=== PATIENT | male | born 1985 | race African-American/Black ===

== ENCOUNTER 2019-12-17 10:49 | Inpatient (IN) | payer MEDICAID, OTHER ==
[~2019-12-17] VITALS: Ht 172.7 cm; Wt 105.7 kg
[2019-12-17] MEDS ORDERED: ACETAMINOPHEN 325MG TABLET PO STA (10:59)
[2019-12-17] MEDS ORDERED: SODIUM CHLORIDE 0.9% 1,000 ML IV ONE (11:09)
[2019-12-17 12:09] LABS: HEMATOCRIT. 40.6 % (42.0-52.0); HEMOGLOBIN. 13.8 g/dL (14.0-18.0); MEAN CORPUSCULAR HEMOGLOBIN 25.5 pg (28.0-32.0); MEAN CORPUSCULAR VOLUME 75.4 fL (80.0-94.0); RED BLOOD CELL COUNT 5.39 mill/uL (4.7-6.1); RED CELL DISTRIBUTION WIDTH 15.9 % (11.6-14.6)
[2019-12-17 12:21] LABS: CHLORIDE 98 mEq/L (98-107)
[2019-12-17 12:26] LABS: ETHANOL BLOOD < 10 mg/dL
[2019-12-17 12:31] LABS: BETA HYDROXYBUTYRATE 0.3 mMol/L (0.0-0.3)
[2019-12-17 12:35] LABS: D-DIMER 19.76 mg/L FEU (<0.50); INR 1.1; PROTHROMBIN TIME 11.6 sec (9.6-11.0)
[2019-12-17 12:42] LABS: CREATINE KINASE 1253 IU/L (39-308)
[2019-12-17 12:55] LABS: PLATELET ESTIMATE NORMAL
[2019-12-17 12:56] LABS: MEAN PLATELET VOLUME 8.2 fl (7.4-10.4); PLATELET 210 x1000/uL (130-400)
[2019-12-17] MEDS ORDERED: SODIUM CHLORIDE 0.9% 1000ML BAG (SEPSIS BOLUS) IV ONE (14:00)
[2019-12-17] MEDS ORDERED: PIPERACILLIN/TAZOBACTAM 3.375 G/VIAL IV SCH (14:00)
[2019-12-17] MEDS ORDERED: PIPERACILLIN/TAZ 3.375G PREMIX 50 ML IV NR (14:15)
[2019-12-17] MEDS: SODIUM CHLORIDE 0.9% 1,000 ML IV SCH (14:16)
[2019-12-17 14:50] LABS: CLARITY URINE CLOUDY (CLEAR); COLOR URINE DARK YELLOW (YELLOW); KETONES URINE NEGATIVE (NEGATIVE); LEUKOCYTE ESTERASE URINE TRACE (NEGATIVE); NITRITE URINE NEGATIVE (NEGATIVE); OCCULT BLOOD URINE 2+ (NEGATIVE); PROTEIN URINE 2+ (NEGATIVE)
[2019-12-17] MEDS ORDERED: VANCOMYCIN 1500MG in DEXTROSE 5% WATER 250ML IV NR (15:00)
[2019-12-17 15:08] LABS: *AMPHETAMINES SCREEN URINE NEGATIVE (NEGATIVE); *BARBITURATES SCREEN URINE NEGATIVE (NEGATIVE); *BENZODIAZEPINES SCREEN URINE NEGATIVE (NEGATIVE); *COCAINE SCREEN URINE NEGATIVE (NEGATIVE)
[2019-12-17 15:09] LABS: CANNABINOID URINE SCREEN NEGATIVE (NEGATIVE); METHADONE URINE SCREEN NEGATIVE (NEGATIVE); OPIATES URINE SCREEN NEGATIVE (NEGATIVE); PHENCYCLIDINE URINE SCREEN NEGATIVE (NEGATIVE)
[2019-12-17 15:38] LABS: BG BASE EXCESS 0.1 mmol/L (-2.0-2.0); BG CARBOXYHEMOGLOBIN 0.3 % (0.5-1.5); BG DEOXYHEMOGLOBIN 0.8 % (0.0-5.0); BG FRACTION INSPIRED OXYGEN 100; BG HCO3 ACT 23.5 mmol/L (22.0-26.0); BG METHEMOGLOBIN 0.5 % (0.0-1.5); BG OXYGEN SATURATION 99.2 % (92.0-98.5); BG OXYHEMOGLOBIN 98.4 % (94.0-97.0); BG PCO2 34.3 mmHg (35.0-45.0); BG PH 7.453 (7.350-7.450); BG PO2 198.3 mmHg (75.0-100.0); BG SAMPLE SITE RIGHT RADIAL; BG TOTAL HEMOGLOBIN 13.6 g/dL (12.0-18.0); BG VENT MODE MASK - NRB
[2019-12-17] MEDS ORDERED: ENOXAPARIN 40MG/0.4ML SYR SUBCUT SCH (16:00)
[2019-12-17] MEDS ORDERED: DOCUSATE SODIUM 100MG CAPSULE PO PRN (19:30)
[2019-12-17] MEDS ORDERED: LORAZEPAM 0.5MG TABLET PO PRN (19:30)
[2019-12-17] MEDS ORDERED: HYDROCODONE/ACETAMINOPHEN 5/325MG TABLET PO PRN (19:30)
[2019-12-17] MEDS ORDERED: IPRATROPIUM/ALBUTEROL 0.5-3(2.5)MG/3ML NEB HHN PRN (19:30)
[2019-12-17 20:00] VITALS: BP 161/83
[2019-12-17 20:35] VITALS: BP 161/83
[2019-12-17 21:00] VITALS: BP 146/82
[2019-12-17] MEDS ORDERED: PIPERACILLIN/TAZ 3.375G PREMIX 50 ML IV SCH (22:00)
[2019-12-17] MEDS ORDERED: IOHEXOL-350 100 ML BOTTLE ONE (22:12)
[2019-12-17] MEDS: PIPERACILLIN/TAZOBACTAM 3.375 G in DEXT 5% WATER 100 ML IV SCH (22:35)
[2019-12-17] MEDS ORDERED: METF-414 PO (22:42)
[2019-12-18] VITALS (63 sets, daily range): BP systolic 95–229; BP diastolic 35–132
[2019-12-18] MEDS: SODIUM CHLORIDE 0.9% 1,000 ML IV SCH ×4 (00:26→20:13)
[2019-12-18] MEDS: ACETAMINOPHEN 325MG TABLET PO PRN ×3 (00:51→20:52)
[2019-12-18] MEDS: PIPERACILLIN/TAZOBACTAM 3.375 G in DEXT 5% WATER 100 ML IV SCH ×4 (01:13→20:12)
[2019-12-18] MEDS: ALBUTEROL 6.7GM HFA INHALER ORI SCH ×2 (01:40→08:25)
[2019-12-18] MEDS ORDERED: VANCOMYCIN 1 G PREMIX 200 ML IV SCH ×2 (06:00)
[2019-12-18 07:24] LABS: HEMOGLOBIN. 12.8 g/dL (14.0-18.0); MEAN CORPUSCULAR HEMOGLOBIN 25.6 pg (28.0-32.0); MEAN PLATELET VOLUME 8.1 fl (7.4-10.4); PLATELET 175 x1000/uL (130-400); RED BLOOD CELL COUNT 5.01 mill/uL (4.7-6.1); RED CELL DISTRIBUTION WIDTH 16.1 % (11.6-14.6)
[2019-12-18 07:31] LABS: CHLORIDE 103 mEq/L (98-107)
[2019-12-18 07:39] LABS: LDL CHOLESTEROL 39 mg/dL (5-100); TOTAL IRON BINDING CAPACITY 262 ug/dL (250-450)
[2019-12-18 07:42] LABS: HDL CHOLESTEROL 10 mg/dL (40-59)
[2019-12-18] MEDS ORDERED: PHENYLEPHRINE 20 MG in DEXT 5% WATER 248 ML IV PRN (12:30)
[2019-12-18 13:08] LABS: BG BASE EXCESS -4.3 mmol/L (-2.0-2.0); BG CARBOXYHEMOGLOBIN 0.2 % (0.5-1.5); BG DEOXYHEMOGLOBIN 1.8 % (0.0-5.0); BG HCO3 ACT 22.5 mmol/L (22.0-26.0); BG METHEMOGLOBIN 0.4 % (0.0-1.5); BG OXYGEN SATURATION 98.2 % (92.0-98.5); BG OXYHEMOGLOBIN 97.6 % (94.0-97.0); BG PCO2 47.8 mmHg (35.0-45.0); BG PO2 127.6 mmHg (75.0-100.0); BG SAMPLE SITE RIGHT BRACHIAL; BG TIDAL VOLUME(mL) 550 mL; BG TOTAL HEMOGLOBIN 13.7 g/dL (12.0-18.0); BG VENT MODE VENT - A/C; BG VENT RATE 18 set
[2019-12-18] MEDS: FENTANYL CITRATE/PF 1,000 MCG in SODIUM CHLORIDE 0.9% 80 ML IV PRN ×2 (13:28→21:14)
[2019-12-18] MEDS: MIDAZOLAM HCL 100 MG in DEXT 5% WATER 80 ML IV PRN ×2 (13:30→21:14)
[2019-12-18 14:09] LABS: PLATELET ESTIMATE NORMAL
[2019-12-18] MEDS: ENOXAPARIN 120MG/0.8ML SYR SUBCUT SCH ×2 (16:01→20:13)
[2019-12-18] MEDS: IPRATROPIUM/ALBUTEROL 0.5-3(2.5)MG/3ML NEB HHN SCH ×3 (16:55→22:05)
[2019-12-18] MEDS ORDERED: VANCOMYCIN 1250MG in DEXTROSE 5% WATER 250ML IV SCH (20:00)
[2019-12-19] VITALS (95 sets, daily range): BP systolic 97–153; BP diastolic 47–90
[2019-12-19] MEDS: PIPERACILLIN/TAZOBACTAM 3.375 G in DEXT 5% WATER 100 ML IV SCH ×4 (02:16→21:04)
[2019-12-19] MEDS: IPRATROPIUM/ALBUTEROL 0.5-3(2.5)MG/3ML NEB HHN SCH ×4 (04:10→20:21)
[2019-12-19 05:46] LABS: HEMATOCRIT. 34.3 % (42.0-52.0); HEMOGLOBIN. 11.5 g/dL (14.0-18.0); MEAN CORPUSCULAR HEMOGLOBIN 25.8 pg (28.0-32.0); MEAN CORPUSCULAR VOLUME 77.2 fL (80.0-94.0); MEAN PLATELET VOLUME 8.8 fl (7.4-10.4); PLATELET 182 x1000/uL (130-400); RED BLOOD CELL COUNT 4.45 mill/uL (4.7-6.1); RED CELL DISTRIBUTION WIDTH 16.3 % (11.6-14.6)
[2019-12-19] MEDS: SODIUM CHLORIDE 0.9% 1,000 ML IV SCH ×2 (06:17→17:00)
[2019-12-19 06:24] LABS: HEPATITIS B SURFACE ANTIGEN NEGATIVE
[2019-12-19] MEDS: ACETAMINOPHEN 325MG TABLET PO PRN ×2 (06:46→13:00)
[2019-12-19 06:54] LABS: HEPATITIS A AB IGM NEGATIVE (NEGATIVE)
[2019-12-19 07:08] LABS: PLATELET ESTIMATE NORMAL
[2019-12-19] MEDS: ENOXAPARIN 120MG/0.8ML SYR SUBCUT SCH ×2 (09:37→21:04)
[2019-12-19 09:58] LABS: BG CARBOXYHEMOGLOBIN 0.3 % (0.5-1.5); BG DEOXYHEMOGLOBIN 0.9 % (0.0-5.0); BG FRACTION INSPIRED OXYGEN 80; BG HCO3 ACT 24.5 mmol/L (22.0-26.0); BG METHEMOGLOBIN 0.7 % (0.0-1.5); BG OXYGEN SATURATION 99.1 % (92.0-98.5); BG OXYHEMOGLOBIN 98.1 % (94.0-97.0); BG PCO2 44.3 mmHg (35.0-45.0); BG PH 7.361 (7.350-7.450); BG PO2 277.4 mmHg (75.0-100.0); BG SAMPLE SITE RIGHT RADIAL; BG TIDAL VOLUME(mL) 500 mL; BG TOTAL HEMOGLOBIN 10.8 g/dL (12.0-18.0); BG VENT MODE VENT- PRVC; BG VENT RATE 20 set
[2019-12-19] MEDS ORDERED: DEXTROSE 50% WATER 50ML SYRINGE IV PRN (14:45)
[2019-12-19 15:03] LABS: CLARITY URINE TURBID (CLEAR); COLOR URINE DARK YELLOW (YELLOW); KETONES URINE NEGATIVE (NEGATIVE); LEUKOCYTE ESTERASE URINE 1+ (NEGATIVE); NITRITE URINE NEGATIVE (NEGATIVE); OCCULT BLOOD URINE 2+ (NEGATIVE); PROTEIN URINE 2+ (NEGATIVE); SPECIFIC GRAVITY URINE 1.019 (1.005-1.030)
[2019-12-19] MEDS: BLOOD SUGAR DIAGNOSTIC STRIP TEST SCH (18:00)
[2019-12-19] MEDS: INSULIN LISPRO 100 UNITS/ML SUBCUT SCH (18:00)
[2019-12-19] MEDS: FENTANYL CITRATE/PF 1,000 MCG in SODIUM CHLORIDE 0.9% 80 ML IV PRN (21:22)
[2019-12-19] MEDS: MIDAZOLAM HCL 100 MG in DEXT 5% WATER 80 ML IV PRN (22:26)
[2019-12-20] VITALS (89 sets, daily range): BP systolic 104–140; BP diastolic 49–84
[2019-12-20] MEDS: SODIUM CHLORIDE 0.9% 1,000 ML IV SCH (01:14)
[2019-12-20] MEDS: BLOOD SUGAR DIAGNOSTIC STRIP TEST SCH ×4 (01:59→17:40)
[2019-12-20] MEDS: INSULIN LISPRO 100 UNITS/ML SUBCUT SCH ×4 (02:00→17:40)
[2019-12-20] MEDS: PIPERACILLIN/TAZOBACTAM 3.375 G in DEXT 5% WATER 100 ML IV SCH ×4 (02:18→20:41)
[2019-12-20 05:29] LABS: HEMATOCRIT. 30.9 % (42.0-52.0); HEMOGLOBIN. 10.3 g/dL (14.0-18.0); MEAN CORPUSCULAR HEMOGLOBIN 25.4 pg (28.0-32.0); MEAN CORPUSCULAR VOLUME 76.5 fL (80.0-94.0); MEAN PLATELET VOLUME 8.7 fl (7.4-10.4); PLATELET 206 x1000/uL (130-400); RED BLOOD CELL COUNT 4.04 mill/uL (4.7-6.1); RED CELL DISTRIBUTION WIDTH 15.8 % (11.6-14.6)
[2019-12-20 05:46] LABS: CHLORIDE 113 mEq/L (98-107)
[2019-12-20 05:56] LABS: PHOSPHORUS 2.5 mg/dL (2.5-4.9)
[2019-12-20] MEDS: FENTANYL CITRATE/PF 1,000 MCG in SODIUM CHLORIDE 0.9% 80 ML IV PRN ×2 (06:11→20:28)
[2019-12-20 07:32] LABS: PLATELET ESTIMATE NORMAL
[2019-12-20] MEDS: ENOXAPARIN 120MG/0.8ML SYR SUBCUT SCH ×2 (08:38→20:41)
[2019-12-20] MEDS: ACETAMINOPHEN 325MG TABLET PO PRN ×3 (08:39→21:53)
[2019-12-20] MEDS: SODIUM HYPOCHLORITE 0.125% 473ML SOLUTION TOP SCH ×2 (08:39)
[2019-12-20] MEDS: IPRATROPIUM/ALBUTEROL 0.5-3(2.5)MG/3ML NEB HHN SCH ×3 (09:04→20:15)
[2019-12-20] MEDS: SODIUM CHLORIDE 0.45% 1,000 ML IV SCH ×3 (09:34→20:28)
[2019-12-20] MEDS: MIDAZOLAM HCL 100 MG in DEXT 5% WATER 80 ML IV PRN ×2 (09:37→23:02)
[2019-12-20] MEDS: DAPTOMYCIN 500 MG in SODIUM CHLORIDE 0.9% 50 ML IV SCH (15:31)
[2019-12-21] VITALS (96 sets, daily range): BP systolic 107–147; BP diastolic 48–75
[2019-12-21] MEDS: IPRATROPIUM/ALBUTEROL 0.5-3(2.5)MG/3ML NEB HHN SCH ×4 (01:08→20:25)
[2019-12-21] MEDS: PIPERACILLIN/TAZOBACTAM 3.375 G in DEXT 5% WATER 100 ML IV SCH ×4 (02:28→20:41)
[2019-12-21 04:07] LABS: HIV 1 ABS Positive (Negative); HIV 2 ABS Negative (Negative); HIV SCREEN 4G Reactive (Non Reactive); INTERPRETATION HIV-1 Positive (.)
[2019-12-21 05:06] LABS: HEMATOCRIT. 30.3 % (42.0-52.0); HEMOGLOBIN. 10.1 g/dL (14.0-18.0); MEAN CORPUSCULAR HEMOGLOBIN 25.5 pg (28.0-32.0); MEAN CORPUSCULAR VOLUME 76.5 fL (80.0-94.0); MEAN PLATELET VOLUME 8.8 fl (7.4-10.4); PLATELET 260 x1000/uL (130-400); RED BLOOD CELL COUNT 3.97 mill/uL (4.7-6.1); RED CELL DISTRIBUTION WIDTH 16.5 % (11.6-14.6)
[2019-12-21 05:14] LABS: CHLORIDE 114 mEq/L (98-107)
[2019-12-21 05:19] LABS: PHOSPHORUS 2.6 mg/dL (2.5-4.9)
[2019-12-21] MEDS: INSULIN LISPRO 100 UNITS/ML SUBCUT SCH ×5 (06:00→23:44)
[2019-12-21] MEDS: ACETAMINOPHEN 325MG TABLET PO PRN ×3 (06:14→19:58)
[2019-12-21] MEDS: SODIUM CHLORIDE 0.45% 1,000 ML IV SCH (06:37)
[2019-12-21 06:38] LABS: PLATELET ESTIMATE NORMAL
[2019-12-21] MEDS: BLOOD SUGAR DIAGNOSTIC STRIP TEST SCH ×5 (06:51→23:44)
[2019-12-21] MEDS: ENOXAPARIN 120MG/0.8ML SYR SUBCUT SCH ×2 (08:20→20:40)
[2019-12-21] MEDS: SODIUM HYPOCHLORITE 0.125% 473ML SOLUTION TOP SCH (08:21)
[2019-12-21] MEDS: DEXTROSE 5% WATER 1,000 ML IV SCH ×2 (08:45→21:30)
[2019-12-21] MEDS ORDERED: LIDOCAINE HCL 1% 20ML VIAL (Pyxis) INJ ONE (09:16)
[2019-12-21 10:06] LABS: *CREATININE RANDOM URINE 104.7 mg/dL (Not Estab.); MICROALBUMIN RANDOM URINE 23.5 ug/mL (Not Estab.)
[2019-12-21] MEDS: PANTOPRAZOLE SODIUM 40 MG/VIAL IV SCH (11:21)
[2019-12-21] MEDS: DAPTOMYCIN 500 MG in SODIUM CHLORIDE 0.9% 50 ML IV SCH (16:18)
[2019-12-22] VITALS (93 sets, daily range): BP systolic 115–169; BP diastolic 58–93
[2019-12-22] MEDS: IPRATROPIUM/ALBUTEROL 0.5-3(2.5)MG/3ML NEB HHN SCH ×4 (00:52→20:19)
[2019-12-22] MEDS: PIPERACILLIN/TAZOBACTAM 3.375 G in DEXT 5% WATER 100 ML IV SCH ×4 (01:34→20:18)
[2019-12-22] MEDS: ACETAMINOPHEN 325MG TABLET PO PRN ×2 (02:45→12:11)
[2019-12-22] MEDS: INSULIN LISPRO 100 UNITS/ML SUBCUT SCH ×4 (06:00→23:57)
[2019-12-22] MEDS: BLOOD SUGAR DIAGNOSTIC STRIP TEST SCH ×4 (06:11→23:44)
[2019-12-22 06:12] LABS: CHLORIDE 114 mEq/L (98-107); HEMATOCRIT. 30.6 % (42.0-52.0); MEAN PLATELET VOLUME 8.9 fl (7.4-10.4); PLATELET 328 x1000/uL (130-400); RED BLOOD CELL COUNT 4.03 mill/uL (4.7-6.1); RED CELL DISTRIBUTION WIDTH 16.1 % (11.6-14.6)
[2019-12-22] MEDS: ENOXAPARIN 120MG/0.8ML SYR SUBCUT SCH ×2 (08:36→20:19)
[2019-12-22] MEDS: PANTOPRAZOLE SODIUM 40 MG/VIAL IV SCH (08:37)
[2019-12-22 09:35] LABS: PLATELET ESTIMATE NORMAL
[2019-12-22] MEDS: FENTANYL CITRATE/PF 1,000 MCG in SODIUM CHLORIDE 0.9% 80 ML IV PRN (11:09)
[2019-12-22] MEDS: SODIUM HYPOCHLORITE 0.125% 473ML SOLUTION TOP SCH (11:10)
[2019-12-22 12:08] LABS: BG BASE EXCESS -0.9 mmol/L (-2.0-2.0); BG CARBOXYHEMOGLOBIN 0.3 % (0.5-1.5); BG DEOXYHEMOGLOBIN 3.8 % (0.0-5.0); BG HCO3 ACT 23.6 mmol/L (22.0-26.0); BG METHEMOGLOBIN 0.7 % (0.0-1.5); BG OXYGEN SATURATION 96.2 % (92.0-98.5); BG OXYHEMOGLOBIN 95.2 % (94.0-97.0); BG PCO2 38.6 mmHg (35.0-45.0); BG PH 7.405 (7.350-7.450); BG PO2 89.2 mmHg (75.0-100.0); BG SAMPLE SITE RIGHT RADIAL; BG TIDAL VOLUME(mL) 500 mL; BG TOTAL HEMOGLOBIN 10.6 g/dL (12.0-18.0); BG VENT MODE VENT - A/C; BG VENT RATE 16 set
[2019-12-22] MEDS: DEXTROSE 5% WATER 1,000 ML IV SCH (14:51)
[2019-12-22] MEDS: DAPTOMYCIN 500 MG in SODIUM CHLORIDE 0.9% 50 ML IV SCH (17:11)
[2019-12-22] MEDS: ACETAMINOPHEN 650MG/20.3ML UDC PO PRN (18:17)
[2019-12-22] MEDS: MIDAZOLAM HCL 100 MG in DEXT 5% WATER 80 ML IV PRN (21:08)
[2019-12-23] VITALS (65 sets, daily range): BP systolic 113–193; BP diastolic 56–129
[2019-12-23] MEDS: IPRATROPIUM/ALBUTEROL 0.5-3(2.5)MG/3ML NEB HHN SCH ×4 (02:15→20:54)
[2019-12-23] MEDS: FENTANYL CITRATE/PF 1,000 MCG in SODIUM CHLORIDE 0.9% 80 ML IV PRN ×2 (05:05→16:25)
[2019-12-23] MEDS: DEXTROSE 5% WATER 1,000 ML IV SCH ×2 (05:09→16:22)
[2019-12-23] MEDS: BLOOD SUGAR DIAGNOSTIC STRIP TEST SCH ×4 (05:09→23:42)
[2019-12-23] MEDS: INSULIN LISPRO 100 UNITS/ML SUBCUT SCH ×4 (05:35→23:42)
[2019-12-23 05:47] LABS: HEMOGLOBIN. 9.7 g/dL (14.0-18.0); MEAN CORPUSCULAR HEMOGLOBIN 25.5 pg (28.0-32.0); MEAN PLATELET VOLUME 8.7 fl (7.4-10.4); PLATELET 359 x1000/uL (130-400); RED BLOOD CELL COUNT 3.81 mill/uL (4.7-6.1); RED CELL DISTRIBUTION WIDTH 16.2 % (11.6-14.6)
[2019-12-23] MEDS: ACETAMINOPHEN 650MG/20.3ML UDC PO PRN (06:16)
[2019-12-23 08:16] LABS: BG BASE EXCESS -2.8 mmol/L (-2.0-2.0); BG CARBOXYHEMOGLOBIN 0.3 % (0.5-1.5); BG DEOXYHEMOGLOBIN 1.4 % (0.0-5.0); BG FRACTION INSPIRED OXYGEN 40; BG HCO3 ACT 21.9 mmol/L (22.0-26.0); BG OXYGEN SATURATION 98.6 % (92.0-98.5); BG OXYHEMOGLOBIN 97.3 % (94.0-97.0); BG PCO2 37.4 mmHg (35.0-45.0); BG PH 7.385 (7.350-7.450); BG PO2 143.1 mmHg (75.0-100.0); BG SAMPLE SITE RIGHT RADIAL; BG TIDAL VOLUME(mL) 500 mL; BG TOTAL HEMOGLOBIN 8.8 g/dL (12.0-18.0); BG VENT MODE VENT - A/C; BG VENT RATE 16 set
[2019-12-23 09:07] LABS: ABSOLUTE EOSINOPHILS 0.2 x10E3/uL (0.0-0.4); ABSOLUTE LYMPHOCYTES 2.6 x10E3/uL (0.7-3.1); ABSOLUTE MONOCYTES 0.9 x10E3/uL (0.1-0.9); ABSOLUTE NEUTROPHILS 16.7 x10E3/uL (1.4-7.0); BASOPHILS 0 % (Not Estab.); HEMATOCRIT 31.8 % (37.5-51.0); HEMATOLOGY COMMENT Note: (.); HEMOGLOBIN 9.7 g/dL (13.0-17.7); LYMPHOCYTES 12 % (Not Estab.); MEAN CORPUSCULAR HEMOGLOBIN 25.1 pg (26.6-33.0); MEAN CORPUSCULAR HGB CONC. 30.5 g/dL (31.5-35.7); MEAN CORPUSCULAR VOLUME 82 fL (79-97); MONOCYTES 4 % (Not Estab.); NEUTROPHILS 73 % (Not Estab.); PLATELETS 349 x10E3/uL (150-450); RBC 3.86 x10E6/uL (4.14-5.80); RED CELL DISTRIBUTION WIDTH 16.5 % (11.6-15.4); WBC 21.4 x10E3/uL (3.4-10.8)
[2019-12-23] MEDS: SODIUM HYPOCHLORITE 0.125% 473ML SOLUTION TOP SCH (09:30)
[2019-12-23] MEDS: PANTOPRAZOLE SODIUM 40 MG/VIAL IV SCH (09:33)
[2019-12-23] MEDS: ACETAMINOPHEN 325MG TABLET PO PRN ×4 (09:33→23:46)
[2019-12-23] MEDS: ENOXAPARIN 120MG/0.8ML SYR SUBCUT SCH ×2 (09:33→20:55)
[2019-12-23 10:27] LABS: PLATELET ESTIMATE NORMAL
[2019-12-23] MEDS ORDERED: MIDAZOLAM HCL 50 MG in DEXTROSE 5% WATER 40 ML IV PRN (13:15)
[2019-12-23] MEDS: DAPTOMYCIN 500 MG in SODIUM CHLORIDE 0.9% 50 ML IV SCH (16:21)
[2019-12-23] MEDS: DOXYCYCLINE HYCLATE 100MG CAPSULE PO SCH (18:44)
[2019-12-23] MEDS: POLYETHYLENE GLYCOL 3350 (17GM) 1 DOSE PACK PO PRN (20:55)
[2019-12-24] VITALS (45 sets, daily range): BP systolic 83–158; BP diastolic 48–91
[2019-12-24] MEDS: IPRATROPIUM/ALBUTEROL 0.5-3(2.5)MG/3ML NEB HHN SCH ×4 (01:27→20:28)
[2019-12-24] MEDS: DEXTROSE 5% WATER 1,000 ML IV SCH ×2 (04:13→16:43)
[2019-12-24] MEDS: FENTANYL CITRATE/PF 1,000 MCG in SODIUM CHLORIDE 0.9% 80 ML IV PRN ×3 (04:15→22:49)
[2019-12-24 05:35] LABS: HEMOGLOBIN. 9.6 g/dL (14.0-18.0); MEAN CORPUSCULAR HEMOGLOBIN 25.3 pg (28.0-32.0); MEAN CORPUSCULAR VOLUME 76.6 fL (80.0-94.0); MEAN PLATELET VOLUME 8.8 fl (7.4-10.4); PLATELET 390 x1000/uL (130-400); RED BLOOD CELL COUNT 3.78 mill/uL (4.7-6.1); RED CELL DISTRIBUTION WIDTH 16.1 % (11.6-14.6)
[2019-12-24 05:50] LABS: CHLORIDE 115 mEq/L (98-107)
[2019-12-24 05:58] LABS: PHOSPHORUS 3.4 mg/dL (2.5-4.9)
[2019-12-24] MEDS: BLOOD SUGAR DIAGNOSTIC STRIP TEST SCH ×3 (06:00→17:51)
[2019-12-24] MEDS: INSULIN LISPRO 100 UNITS/ML SUBCUT SCH ×3 (06:00→17:52)
[2019-12-24] MEDS: ACETAMINOPHEN 325MG TABLET PO PRN (06:09)
[2019-12-24 08:57] LABS: BG BASE EXCESS -1.4 mmol/L (-2.0-2.0); BG CARBOXYHEMOGLOBIN 0.3 % (0.5-1.5); BG DEOXYHEMOGLOBIN 3.4 % (0.0-5.0); BG FRACTION INSPIRED OXYGEN 35; BG HCO3 ACT 22.5 mmol/L (22.0-26.0); BG METHEMOGLOBIN 0.8 % (0.0-1.5); BG OXYGEN SATURATION 96.6 % (92.0-98.5); BG OXYHEMOGLOBIN 95.5 % (94.0-97.0); BG PCO2 34.4 mmHg (35.0-45.0); BG PH 7.433 (7.350-7.450); BG PO2 99.3 mmHg (75.0-100.0); BG SAMPLE SITE RIGHT RADIAL; BG TIDAL VOLUME(mL) 500 mL; BG TOTAL HEMOGLOBIN 9.8 g/dL (12.0-18.0); BG VENT MODE VENT - A/C; BG VENT RATE 16 set
[2019-12-24 09:06] LABS: % CD 3 POS. LYMPHOCYTES 86.4 % (57.5-86.2); % CD 4 POS. LYMPHOCYTES 19.7 % (30.8-58.5); % CD 8 POS. LYMPH 64.7 % (12.0-35.5); ABSOLUTE CD 3 2246 /uL (622-2402); ABSOLUTE CD 4 HELPER 512 /uL (359-1519); ABSOLUTE CD 8 SUPPRESSOR 1682 /uL (109-897)
[2019-12-24 09:21] LABS: NUCLEATED RED BLOOD CELLS 1 /100 WBC
[2019-12-24 09:22] LABS: PLATELET ESTIMATE NORMAL
[2019-12-24] MEDS: DOXYCYCLINE HYCLATE 100MG CAPSULE PO SCH ×2 (09:36→22:42)
[2019-12-24] MEDS: PANTOPRAZOLE SODIUM 40 MG/VIAL IV SCH (09:36)
[2019-12-24] MEDS: ENOXAPARIN 120MG/0.8ML SYR SUBCUT SCH ×2 (09:37→22:42)
[2019-12-24] MEDS: POLYETHYLENE GLYCOL 3350 (17GM) 1 DOSE PACK PO PRN (09:37)
[2019-12-24] MEDS: SODIUM HYPOCHLORITE 0.125% 473ML SOLUTION TOP SCH (09:38)
[2019-12-24] MEDS: MIDAZOLAM HCL 100 MG in DEXT 5% WATER 80 ML IV PRN (11:32)
[2019-12-24] MEDS: ACETAMINOPHEN 650MG/20.3ML UDC PO PRN (13:38)
[2019-12-24] MEDS: DAPTOMYCIN 500 MG in SODIUM CHLORIDE 0.9% 50 ML IV SCH (16:28)
[2019-12-24] MEDS: CEFAZOLIN 2,000 MG in DEXT 5% WATER 100 ML IV SCH (22:44)
[2019-12-25] VITALS (46 sets, daily range): BP systolic 100–172; BP diastolic 41–88
[2019-12-25] MEDS: MIDAZOLAM HCL 100 MG in DEXT 5% WATER 80 ML IV PRN ×2 (02:04→13:46)
[2019-12-25] MEDS: IPRATROPIUM/ALBUTEROL 0.5-3(2.5)MG/3ML NEB HHN SCH ×4 (02:05→21:00)
[2019-12-25] MEDS: ACETAMINOPHEN 650MG/20.3ML UDC PO PRN ×2 (02:05→22:41)
[2019-12-25 05:52] LABS: BASOPHILS % 0.5 % (0.0-2.0); EOSINOPHILS % 1.2 % (0.0-5.0); HEMATOCRIT. 28.6 % (42.0-52.0); HEMOGLOBIN. 9.3 g/dL (14.0-18.0); LYMPHOCYTES % 9.2 % (20.0-50.0); MEAN CORPUSCULAR HEMOGLOBIN 25.7 pg (28.0-32.0); MEAN CORPUSCULAR VOLUME 78.6 fL (80.0-94.0); MEAN PLATELET VOLUME 9.3 fl (7.4-10.4); MONOCYTES % 4.3 % (2.0-8.0); NEUTROPHILS % 84.8 % (40.0-76.0); PLATELET 394 x1000/uL (130-400); RED BLOOD CELL COUNT 3.64 mill/uL (4.7-6.1); RED CELL DISTRIBUTION WIDTH 15.9 % (11.6-14.6)
[2019-12-25] MEDS: INSULIN LISPRO 100 UNITS/ML SUBCUT SCH ×4 (06:00→17:34)
[2019-12-25 06:02] LABS: CHLORIDE 114 mEq/L (98-107)
[2019-12-25] MEDS: CEFAZOLIN 2,000 MG in DEXT 5% WATER 100 ML IV SCH ×3 (06:07→22:41)
[2019-12-25] MEDS: BLOOD SUGAR DIAGNOSTIC STRIP TEST SCH ×4 (06:07→17:35)
[2019-12-25] MEDS: DEXTROSE 5% WATER 1,000 ML IV SCH ×2 (06:08→20:32)
[2019-12-25 06:09] LABS: PHOSPHORUS 3.3 mg/dL (2.5-4.9)
[2019-12-25] MEDS: FENTANYL CITRATE/PF 1,000 MCG in SODIUM CHLORIDE 0.9% 80 ML IV PRN ×3 (06:09→23:57)
[2019-12-25] MEDS: DOXYCYCLINE HYCLATE 100MG CAPSULE PO SCH ×2 (08:11→20:31)
[2019-12-25] MEDS: PANTOPRAZOLE SODIUM 40 MG/VIAL IV SCH (08:11)
[2019-12-25] MEDS: ENOXAPARIN 120MG/0.8ML SYR SUBCUT SCH ×2 (08:12→20:31)
[2019-12-25] MEDS: SODIUM HYPOCHLORITE 0.125% 473ML SOLUTION TOP SCH (08:13)
[2019-12-25] MEDS: ACETAMINOPHEN 325MG TABLET PO PRN (08:14)
[2019-12-25] MEDS ORDERED: LIDOCAINE 1%/EPI 1:100,000 10 ML VIAL IJ ONE (19:00)
[2019-12-25] MEDS: MORPHINE SULFATE 2 MG/ML CPJ (NOT FOR IM USE) IV PRN (20:04)
[2019-12-25] MEDS: DAPTOMYCIN 500 MG in SODIUM CHLORIDE 0.9% 50 ML IV SCH (22:41)
[2019-12-26] VITALS (48 sets, daily range): BP systolic 103–147; BP diastolic 55–94
[2019-12-26] MEDS: BLOOD SUGAR DIAGNOSTIC STRIP TEST SCH ×5 (00:15→23:33)
[2019-12-26] MEDS: MIDAZOLAM HCL 100 MG in DEXT 5% WATER 80 ML IV PRN ×2 (00:27→13:45)
[2019-12-26] MEDS: IPRATROPIUM/ALBUTEROL 0.5-3(2.5)MG/3ML NEB HHN SCH ×4 (01:39→19:51)
[2019-12-26] MEDS: CEFAZOLIN 2,000 MG in DEXT 5% WATER 100 ML IV SCH ×3 (05:19→21:01)
[2019-12-26 06:19] LABS: BASOPHILS % 0.7 % (0.0-2.0); EOSINOPHILS % 1.4 % (0.0-5.0); HEMATOCRIT. 25.8 % (42.0-52.0); HEMOGLOBIN. 8.5 g/dL (14.0-18.0); MEAN CORPUSCULAR HEMOGLOBIN 25.6 pg (28.0-32.0); MEAN CORPUSCULAR VOLUME 77.9 fL (80.0-94.0); MEAN PLATELET VOLUME 8.9 fl (7.4-10.4); MONOCYTES % 5.7 % (2.0-8.0); NEUTROPHILS % 83.2 % (40.0-76.0); PLATELET 425 x1000/uL (130-400); RED BLOOD CELL COUNT 3.31 mill/uL (4.7-6.1); RED CELL DISTRIBUTION WIDTH 15.7 % (11.6-14.6)
[2019-12-26] MEDS: ACETAMINOPHEN 650MG/20.3ML UDC PO PRN (06:22)
[2019-12-26 06:30] LABS: CHLORIDE 111 mEq/L (98-107)
[2019-12-26 06:37] LABS: PHOSPHORUS 4.2 mg/dL (2.5-4.9)
[2019-12-26] MEDS: INSULIN LISPRO 100 UNITS/ML SUBCUT SCH ×5 (07:00→23:33)
[2019-12-26] MEDS: FENTANYL CITRATE/PF 1,000 MCG in SODIUM CHLORIDE 0.9% 80 ML IV PRN ×2 (07:33→19:11)
[2019-12-26 08:11] LABS: *HIV-1 RNA BY PCR 1780 copies/mL (.)
[2019-12-26] MEDS: PANTOPRAZOLE SODIUM 40 MG/VIAL IV SCH (08:50)
[2019-12-26] MEDS: DOXYCYCLINE HYCLATE 100MG CAPSULE PO SCH ×2 (08:50→21:02)
[2019-12-26] MEDS: ENOXAPARIN 120MG/0.8ML SYR SUBCUT SCH ×2 (08:50→20:17)
[2019-12-26] MEDS: SODIUM HYPOCHLORITE 0.125% 473ML SOLUTION TOP SCH (08:51)
[2019-12-26] MEDS: DEXTROSE 5% WATER 1,000 ML IV SCH ×2 (08:52→21:16)
[2019-12-26] MEDS: ACETAMINOPHEN 325MG TABLET PO PRN ×2 (13:21→21:01)
[2019-12-26] MEDS: DAPTOMYCIN 500 MG in SODIUM CHLORIDE 0.9% 50 ML IV SCH (22:10)
[2019-12-27] VITALS (46 sets, daily range): BP systolic 105–156; BP diastolic 45–87
[2019-12-27] MEDS: IPRATROPIUM/ALBUTEROL 0.5-3(2.5)MG/3ML NEB HHN SCH ×4 (01:56→20:26)
[2019-12-27] MEDS: MIDAZOLAM HCL 100 MG in DEXT 5% WATER 80 ML IV PRN ×2 (02:13→09:43)
[2019-12-27] MEDS: FENTANYL CITRATE/PF 1,000 MCG in SODIUM CHLORIDE 0.9% 80 ML IV PRN ×3 (04:22→21:39)
[2019-12-27] MEDS: INSULIN LISPRO 100 UNITS/ML SUBCUT SCH ×4 (05:41→23:55)
[2019-12-27] MEDS: BLOOD SUGAR DIAGNOSTIC STRIP TEST SCH ×4 (05:41→23:55)
[2019-12-27] MEDS: CEFAZOLIN 2,000 MG in DEXT 5% WATER 100 ML IV SCH ×3 (05:41→21:39)
[2019-12-27] MEDS: ACETAMINOPHEN 325MG TABLET PO PRN ×2 (05:42→23:00)
[2019-12-27] MEDS: MORPHINE SULFATE 2 MG/ML CPJ (NOT FOR IM USE) IV PRN (05:42)
[2019-12-27 05:52] LABS: HEMATOCRIT. 21.5 % (42.0-52.0); HEMOGLOBIN. 7.2 g/dL (14.0-18.0); MEAN CORPUSCULAR VOLUME 78.2 fL (80.0-94.0); MEAN PLATELET VOLUME 8.9 fl (7.4-10.4); PLATELET 465 x1000/uL (130-400); RED BLOOD CELL COUNT 2.75 mill/uL (4.7-6.1); RED CELL DISTRIBUTION WIDTH 15.9 % (11.6-14.6)
[2019-12-27 05:57] LABS: CHLORIDE 102 mEq/L (98-107)
[2019-12-27 06:05] LABS: PHOSPHORUS 3.5 mg/dL (2.5-4.9)
[2019-12-27] MEDS: PANTOPRAZOLE SODIUM 40 MG/VIAL IV SCH (09:12)
[2019-12-27] MEDS: DOXYCYCLINE HYCLATE 100MG CAPSULE PO SCH ×2 (09:12→21:39)
[2019-12-27] MEDS: SODIUM HYPOCHLORITE 0.125% 473ML SOLUTION TOP SCH (09:13)
[2019-12-27] MEDS: ENOXAPARIN 120MG/0.8ML SYR SUBCUT SCH (09:13)
[2019-12-27 10:19] LABS: PLATELET ESTIMATE NORMAL
[2019-12-27] MEDS: SODIUM CHLORIDE 0.45% 1,000 ML IV SCH (12:35)
[2019-12-27] MEDS: ACETAMINOPHEN 650MG/20.3ML UDC PO PRN (15:41)
[2019-12-27] MEDS: DAPTOMYCIN 500 MG in SODIUM CHLORIDE 0.9% 50 ML IV SCH (22:42)
[2019-12-28] VITALS (51 sets, daily range): BP systolic 107–175; BP diastolic 45–105
[2019-12-28] MEDS: MIDAZOLAM HCL 100 MG in DEXT 5% WATER 80 ML IV PRN ×3 (01:06→23:53)
[2019-12-28] MEDS: IPRATROPIUM/ALBUTEROL 0.5-3(2.5)MG/3ML NEB HHN SCH ×4 (01:35→20:30)
[2019-12-28 05:55] LABS: CHLORIDE 109 mEq/L (98-107)
[2019-12-28 05:59] LABS: MEAN CORPUSCULAR HEMOGLOBIN 25.9 pg (28.0-32.0); MEAN CORPUSCULAR VOLUME 77.8 fL (80.0-94.0); PLATELET 594 x1000/uL (130-400); RED BLOOD CELL COUNT 2.68 mill/uL (4.7-6.1); RED CELL DISTRIBUTION WIDTH 15.7 % (11.6-14.6)
[2019-12-28] MEDS: INSULIN LISPRO 100 UNITS/ML SUBCUT SCH ×4 (06:00→23:30)
[2019-12-28 06:03] LABS: PHOSPHORUS 3.8 mg/dL (2.5-4.9)
[2019-12-28] MEDS: BLOOD SUGAR DIAGNOSTIC STRIP TEST SCH ×4 (06:06→23:30)
[2019-12-28 06:07] LABS: HEMATOCRIT. 20.8 % (42.0-52.0); HEMOGLOBIN. 6.9 g/dL (14.0-18.0)
[2019-12-28] MEDS: CEFAZOLIN 2,000 MG in DEXT 5% WATER 100 ML IV SCH ×3 (06:21→20:42)
[2019-12-28] MEDS: ACETAMINOPHEN 325MG TABLET PO PRN (06:22)
[2019-12-28] MEDS ORDERED: SODIUM POLYSTYRENE SULFONATE 15 G/60 ML BOT PO SCH (07:45)
[2019-12-28] MEDS: FENTANYL CITRATE/PF 1,000 MCG in SODIUM CHLORIDE 0.9% 80 ML IV PRN (08:05)
[2019-12-28] MEDS: PANTOPRAZOLE SODIUM 40 MG/VIAL IV SCH (08:46)
[2019-12-28] MEDS: SODIUM CHLORIDE 0.45% 1,000 ML IV SCH (08:47)
[2019-12-28] MEDS: EMTRICITABINE 200MG CAPSULE PO SCH (08:47)
[2019-12-28] MEDS: DOXYCYCLINE HYCLATE 100MG CAPSULE PO SCH (08:47)
[2019-12-28] MEDS: ENOXAPARIN 40MG/0.4ML SYR SUBCUT SCH (08:47)
[2019-12-28] MEDS: RALTEGRAVIR 400MG TABLET PO SCH ×2 (08:47→16:47)
[2019-12-28] MEDS: TENOFOVIR 300MG TABLET PO SCH (08:47)
[2019-12-28] MEDS: SODIUM HYPOCHLORITE 0.125% 473ML SOLUTION TOP SCH (08:48)
[2019-12-28 09:14] LABS: BG BASE EXCESS 4.2 mmol/L (-2.0-2.0); BG DEOXYHEMOGLOBIN 7.6 % (0.0-5.0); BG FRACTION INSPIRED OXYGEN 35; BG HCO3 ACT 28.8 mmol/L (22.0-26.0); BG METHEMOGLOBIN 0.5 % (0.0-1.5); BG OXYGEN SATURATION 92.4 % (92.0-98.5); BG OXYHEMOGLOBIN 91.9 % (94.0-97.0); BG PCO2 43.8 mmHg (35.0-45.0); BG PH 7.436 (7.350-7.450); BG PO2 64.9 mmHg (75.0-100.0); BG SAMPLE SITE RIGHT RADIAL; BG TIDAL VOLUME(mL) 500 mL; BG TOTAL HEMOGLOBIN 7.2 g/dL (12.0-18.0); BG VENT MODE VENT - A/C; BG VENT RATE 14 set
[2019-12-28 09:20] LABS: PLATELET ESTIMATE INCREASED
[2019-12-28] MEDS: ACETAMINOPHEN 650MG/20.3ML UDC PO PRN (15:00)
[2019-12-28] MEDS ORDERED: PROPOFOL 200MG/20ML VIAL IV ONE (18:45)
[2019-12-28] MEDS ORDERED: FENTANYL CITRATE/PF 50MCG/ML 2ML VIAL ONE (18:46)
[2019-12-28] MEDS ORDERED: MIDAZOLAM HCL 2 MG/2 ML VIAL ONE (18:46)
[2019-12-28] MEDS ORDERED: LIDOCAINE HCL 1% 20ML VIAL (Pyxis) INJ ONE (19:07)
[2019-12-28] MEDS ORDERED: NORMAL SALINE 0.9% 10 ML SYR ONE (19:08)
[2019-12-28] MEDS ORDERED: BUPIVACAINE HCL 0.5% (5MG/ML) 50ML ONE (19:08)
[2019-12-28] MEDS ORDERED: BACITRACIN 50,000 UNITS/VIAL ONE (19:08)
[2019-12-28] MEDS ORDERED: SODIUM CHLORIDE 0.9% 10ML VIAL ONE (19:42)
[2019-12-28] MEDS ORDERED: CEFAZOLIN SODIUM 1000MG/VIAL ONE (19:42)
[2019-12-28] MEDS: CLONIDINE 0.1MG TABLET PO PRN (20:42)
[2019-12-28] MEDS: DAPTOMYCIN 500 MG in SODIUM CHLORIDE 0.9% 50 ML IV SCH (22:04)
[2019-12-29] VITALS (41 sets, daily range): BP systolic 111–179; BP diastolic 54–107
[2019-12-29] MEDS: FENTANYL CITRATE/PF 1,000 MCG in SODIUM CHLORIDE 0.9% 80 ML IV PRN ×3 (01:41→20:58)
[2019-12-29] MEDS: IPRATROPIUM/ALBUTEROL 0.5-3(2.5)MG/3ML NEB HHN SCH ×4 (01:58→19:49)
[2019-12-29] MEDS: SODIUM CHLORIDE 0.45% 1,000 ML IV SCH (04:52)
[2019-12-29] MEDS: CEFAZOLIN 2,000 MG in DEXT 5% WATER 100 ML IV SCH ×3 (04:52→21:05)
[2019-12-29] MEDS: ACETAMINOPHEN 650MG/20.3ML UDC PO PRN ×2 (04:54→12:23)
[2019-12-29] MEDS: INSULIN LISPRO 100 UNITS/ML SUBCUT SCH ×4 (05:44→23:41)
[2019-12-29] MEDS: BLOOD SUGAR DIAGNOSTIC STRIP TEST SCH ×4 (05:44→23:41)
[2019-12-29 05:51] LABS: HEMATOCRIT. 25.9 % (42.0-52.0); HEMOGLOBIN. 8.8 g/dL (14.0-18.0); MEAN CORPUSCULAR HEMOGLOBIN 26.8 pg (28.0-32.0); MEAN CORPUSCULAR VOLUME 79.2 fL (80.0-94.0); MEAN PLATELET VOLUME 8.3 fl (7.4-10.4); PLATELET 646 x1000/uL (130-400); RED BLOOD CELL COUNT 3.27 mill/uL (4.7-6.1); RED CELL DISTRIBUTION WIDTH 16.4 % (11.6-14.6)
[2019-12-29 05:55] LABS: CHLORIDE 108 mEq/L (98-107)
[2019-12-29 06:04] LABS: PHOSPHORUS 3.7 mg/dL (2.5-4.9)
[2019-12-29] MEDS: PANTOPRAZOLE SODIUM 40 MG/VIAL IV SCH (08:49)
[2019-12-29] MEDS: RALTEGRAVIR 400MG TABLET PO SCH ×2 (08:49→17:36)
[2019-12-29] MEDS: TENOFOVIR 300MG TABLET PO SCH (08:49)
[2019-12-29] MEDS: EMTRICITABINE 200MG CAPSULE PO SCH (08:49)
[2019-12-29] MEDS: SODIUM HYPOCHLORITE 0.125% 473ML SOLUTION TOP SCH (09:00)
[2019-12-29 09:17] LABS: BG BASE EXCESS 2.6 mmol/L (-2.0-2.0); BG CARBOXYHEMOGLOBIN 0.3 % (0.5-1.5); BG DEOXYHEMOGLOBIN 3.8 % (0.0-5.0); BG FRACTION INSPIRED OXYGEN 35; BG HCO3 ACT 26.9 mmol/L (22.0-26.0); BG METHEMOGLOBIN 0.3 % (0.0-1.5); BG OXYGEN SATURATION 96.2 % (92.0-98.5); BG OXYHEMOGLOBIN 95.6 % (94.0-97.0); BG PCO2 40.4 mmHg (35.0-45.0); BG PH 7.441 (7.350-7.450); BG PO2 86.7 mmHg (75.0-100.0); BG SAMPLE SITE RIGHT RADIAL; BG TIDAL VOLUME(mL) 500 mL; BG TOTAL HEMOGLOBIN 8.7 g/dL (12.0-18.0); BG VENT MODE VENT - A/C; BG VENT RATE 14 set
[2019-12-29] MEDS: IPRATROPIUM/ALBUTEROL 0.5-3(2.5)MG/3ML NEB HHN PRN (12:06)
[2019-12-29] MEDS: MIDAZOLAM HCL 100 MG in DEXT 5% WATER 80 ML IV PRN ×2 (12:25→20:57)
[2019-12-29] MEDS: LACTULOSE 20G/30ML UDC PO SCH (15:00)
[2019-12-29 15:07] LABS: PLATELET ESTIMATE INCREASED
[2019-12-29] MEDS: DAPTOMYCIN 500 MG in SODIUM CHLORIDE 0.9% 50 ML IV SCH (22:10)
[2019-12-30] VITALS (37 sets, daily range): BP systolic 121–176; BP diastolic 65–109
[2019-12-30] MEDS: SODIUM CHLORIDE 0.45% 1,000 ML IV SCH ×2 (01:30→21:15)
[2019-12-30] MEDS: IPRATROPIUM/ALBUTEROL 0.5-3(2.5)MG/3ML NEB HHN SCH ×4 (01:56→20:41)
[2019-12-30] MEDS: ACETAMINOPHEN 650MG/20.3ML UDC PO PRN (03:12)
[2019-12-30 05:09] LABS: CHLORIDE 107 mEq/L (98-107)
[2019-12-30 05:19] LABS: HEMATOCRIT. 24.2 % (42.0-52.0); HEMOGLOBIN. 8.3 g/dL (14.0-18.0); MEAN CORPUSCULAR HEMOGLOBIN 27.1 pg (28.0-32.0); MEAN CORPUSCULAR VOLUME 79.5 fL (80.0-94.0); MEAN PLATELET VOLUME 8.2 fl (7.4-10.4); PLATELET 708 x1000/uL (130-400); RED BLOOD CELL COUNT 3.05 mill/uL (4.7-6.1); RED CELL DISTRIBUTION WIDTH 16.1 % (11.6-14.6)
[2019-12-30] MEDS: INSULIN LISPRO 100 UNITS/ML SUBCUT SCH ×3 (05:20→18:00)
[2019-12-30] MEDS: BLOOD SUGAR DIAGNOSTIC STRIP TEST SCH ×3 (05:20→18:00)
[2019-12-30] MEDS: MIDAZOLAM HCL 100 MG in DEXT 5% WATER 80 ML IV PRN ×2 (06:13→17:13)
[2019-12-30] MEDS: FENTANYL CITRATE/PF 1,000 MCG in SODIUM CHLORIDE 0.9% 80 ML IV PRN ×2 (06:13→17:12)
[2019-12-30] MEDS: EMTRICITABINE 200MG CAPSULE PO SCH (08:36)
[2019-12-30] MEDS: PANTOPRAZOLE SODIUM 40 MG/VIAL IV SCH (08:36)
[2019-12-30] MEDS: LACTULOSE 20G/30ML UDC PO SCH (08:36)
[2019-12-30] MEDS: TENOFOVIR 300MG TABLET PO SCH (08:36)
[2019-12-30] MEDS: RALTEGRAVIR 400MG TABLET PO SCH ×2 (08:36→17:12)
[2019-12-30] MEDS: SODIUM HYPOCHLORITE 0.125% 473ML SOLUTION TOP SCH (09:00)
[2019-12-30 09:21] LABS: BG BASE EXCESS -0.5 mmol/L (-2.0-2.0); BG CARBOXYHEMOGLOBIN 0.4 % (0.5-1.5); BG DEOXYHEMOGLOBIN 1.5 % (0.0-5.0); BG FRACTION INSPIRED OXYGEN 35; BG HCO3 ACT 22.6 mmol/L (22.0-26.0); BG METHEMOGLOBIN 0.3 % (0.0-1.5); BG OXYGEN SATURATION 98.5 % (92.0-98.5); BG OXYHEMOGLOBIN 97.8 % (94.0-97.0); BG PO2 109.9 mmHg (75.0-100.0); BG SAMPLE SITE RIGHT RADIAL; BG TIDAL VOLUME(mL) 500 mL; BG TOTAL HEMOGLOBIN 8.8 g/dL (12.0-18.0); BG VENT MODE VENT - A/C; BG VENT RATE 14 set
[2019-12-30] MEDS: ENOXAPARIN 40MG/0.4ML SYR SUBCUT SCH (09:57)
[2019-12-30] MEDS: CLONIDINE 0.1MG TABLET PO PRN ×2 (11:20→21:39)
[2019-12-30] MEDS: DOCUSATE SODIUM SUGAR FREE 100MG/10ML UDC NG PRN (12:12)
[2019-12-30 12:53] LABS: PLATELET ESTIMATE INCREASED
[2019-12-30] MEDS: DAPTOMYCIN 500 MG in SODIUM CHLORIDE 0.9% 50 ML IV SCH (23:05)
[2019-12-31] VITALS (51 sets, daily range): BP systolic 100–172; BP diastolic 58–122
[2019-12-31] MEDS: FENTANYL CITRATE/PF 1,000 MCG in SODIUM CHLORIDE 0.9% 80 ML IV PRN ×3 (01:38→19:12)
[2019-12-31] MEDS: IPRATROPIUM/ALBUTEROL 0.5-3(2.5)MG/3ML NEB HHN SCH ×3 (01:45→20:46)
[2019-12-31] MEDS: MIDAZOLAM HCL 100 MG in DEXT 5% WATER 80 ML IV PRN ×3 (03:38→22:16)
[2019-12-31] MEDS: BLOOD SUGAR DIAGNOSTIC STRIP TEST SCH ×5 (05:18→23:31)
[2019-12-31] MEDS: INSULIN LISPRO 100 UNITS/ML SUBCUT SCH ×5 (05:18→23:52)
[2019-12-31 05:35] LABS: BASOPHILS % 0.9 % (0.0-2.0); EOSINOPHILS % 1.9 % (0.0-5.0); HEMATOCRIT. 24.3 % (42.0-52.0); LYMPHOCYTES % 17.6 % (20.0-50.0); MEAN CORPUSCULAR HEMOGLOBIN 26.4 pg (28.0-32.0); MEAN CORPUSCULAR VOLUME 80.2 fL (80.0-94.0); MEAN PLATELET VOLUME 7.7 fl (7.4-10.4); MONOCYTES % 10.7 % (2.0-8.0); NEUTROPHILS % 68.9 % (40.0-76.0); PLATELET 729 x1000/uL (130-400); RED BLOOD CELL COUNT 3.03 mill/uL (4.7-6.1); RED CELL DISTRIBUTION WIDTH 16.4 % (11.6-14.6)
[2019-12-31 05:36] LABS: CHLORIDE 108 mEq/L (98-107)
[2019-12-31 05:43] LABS: PHOSPHORUS 3.5 mg/dL (2.5-4.9)
[2019-12-31] MEDS: SODIUM HYPOCHLORITE 0.125% 473ML SOLUTION TOP SCH (09:00)
[2019-12-31] MEDS: PANTOPRAZOLE SODIUM 40 MG/VIAL IV SCH (09:17)
[2019-12-31] MEDS: LACTULOSE 20G/30ML UDC PO SCH (09:17)
[2019-12-31] MEDS: ENOXAPARIN 40MG/0.4ML SYR SUBCUT SCH (09:17)
[2019-12-31] MEDS: RALTEGRAVIR 400MG TABLET PO SCH ×2 (09:18→18:52)
[2019-12-31] MEDS: TENOFOVIR 300MG TABLET PO SCH (09:18)
[2019-12-31] MEDS: EMTRICITABINE 200MG CAPSULE PO SCH (09:18)
[2019-12-31 09:24] LABS: BG BASE EXCESS -0.7 mmol/L (-2.0-2.0); BG CARBOXYHEMOGLOBIN 0.3 % (0.5-1.5); BG DEOXYHEMOGLOBIN 2.4 % (0.0-5.0); BG FRACTION INSPIRED OXYGEN 35; BG HCO3 ACT 24.5 mmol/L (22.0-26.0); BG METHEMOGLOBIN 0.3 % (0.0-1.5); BG OXYGEN SATURATION 97.6 % (92.0-98.5); BG PCO2 42.6 mmHg (35.0-45.0); BG PH 7.378 (7.350-7.450); BG PO2 107.1 mmHg (75.0-100.0); BG SAMPLE SITE RIGHT RADIAL; BG TIDAL VOLUME(mL) 500 mL; BG TOTAL HEMOGLOBIN 10.4 g/dL (12.0-18.0); BG VENT MODE VENT - A/C; BG VENT RATE 14 set
[2019-12-31] MEDS: LORAZEPAM 2MG/ML CPJ IV PRN (11:37)
[2019-12-31] MEDS: QUETIAPINE FUMARATE 25MG TABLET PO SCH ×2 (11:38→20:25)
[2019-12-31] MEDS: IPRATROPIUM/ALBUTEROL 0.5-3(2.5)MG/3ML NEB HHN PRN (12:05)
[2019-12-31] MEDS: SODIUM CHLORIDE 0.45% 1,000 ML IV SCH (15:58)
[2019-12-31] MEDS: ACETAMINOPHEN 650MG/20.3ML UDC PO PRN (17:16)
[2019-12-31] MEDS: DOCUSATE SODIUM SUGAR FREE 100MG/10ML UDC NG PRN (20:35)
[2019-12-31] MEDS: CEFAZOLIN 2,000 MG in DEXT 5% WATER 100 ML IV SCH (22:16)
[2019-12-31] MEDS ORDERED: DAPTOMYCIN 500 MG in SODIUM CHLORIDE 0.9% 50 ML IV SCH (22:30)
[2020-01-01] VITALS (46 sets, daily range): BP systolic 109–163; BP diastolic 62–98
[2020-01-01] MEDS: IPRATROPIUM/ALBUTEROL 0.5-3(2.5)MG/3ML NEB HHN SCH ×4 (01:56→21:20)
[2020-01-01] MEDS: FENTANYL CITRATE/PF 1,000 MCG in SODIUM CHLORIDE 0.9% 80 ML IV PRN (03:29)
[2020-01-01] MEDS: ACETAMINOPHEN 650MG/20.3ML UDC PO PRN ×3 (04:32→23:23)
[2020-01-01] MEDS: CEFAZOLIN 2,000 MG in DEXT 5% WATER 100 ML IV SCH ×3 (05:26→22:15)
[2020-01-01] MEDS: INSULIN LISPRO 100 UNITS/ML SUBCUT SCH ×4 (05:26→23:21)
[2020-01-01] MEDS: BLOOD SUGAR DIAGNOSTIC STRIP TEST SCH ×4 (05:26→23:23)
[2020-01-01 05:30] LABS: CHLORIDE 107 mEq/L (98-107)
[2020-01-01 05:38] LABS: BASOPHILS % 0.7 % (0.0-2.0); EOSINOPHILS % 1.9 % (0.0-5.0); HEMATOCRIT. 23.3 % (42.0-52.0); HEMOGLOBIN. 7.9 g/dL (14.0-18.0); LYMPHOCYTES % 20.4 % (20.0-50.0); MEAN CORPUSCULAR VOLUME 79.2 fL (80.0-94.0); MEAN PLATELET VOLUME 7.6 fl (7.4-10.4); MONOCYTES % 11.1 % (2.0-8.0); NEUTROPHILS % 65.9 % (40.0-76.0); PLATELET 767 x1000/uL (130-400); RED BLOOD CELL COUNT 2.94 mill/uL (4.7-6.1); RED CELL DISTRIBUTION WIDTH 16.4 % (11.6-14.6)
[2020-01-01] MEDS: DOCUSATE SODIUM SUGAR FREE 100MG/10ML UDC NG PRN (08:41)
[2020-01-01] MEDS: PANTOPRAZOLE SODIUM 40 MG/VIAL IV SCH (08:41)
[2020-01-01] MEDS: QUETIAPINE FUMARATE 25MG TABLET PO SCH ×2 (08:42→20:02)
[2020-01-01] MEDS: TENOFOVIR 300MG TABLET PO SCH (08:42)
[2020-01-01] MEDS: ENOXAPARIN 40MG/0.4ML SYR SUBCUT SCH (08:42)
[2020-01-01] MEDS: EMTRICITABINE 200MG CAPSULE PO SCH (08:42)
[2020-01-01] MEDS: RALTEGRAVIR 400MG TABLET PO SCH ×2 (08:42→17:02)
[2020-01-01] MEDS: MIDAZOLAM HCL 100 MG in DEXT 5% WATER 80 ML IV PRN ×2 (09:19→21:23)
[2020-01-01] MEDS ORDERED: LACTULOSE 20G/30ML UDC PO SCH (11:30)
[2020-01-01] MEDS: SODIUM HYPOCHLORITE 0.125% 473ML SOLUTION TOP SCH (11:57)
[2020-01-01] MEDS ORDERED: FENTANYL CITRATE/PF 500 MCG in SODIUM CHLORIDE 0.9% 40 ML IV PRN (14:30)
[2020-01-01] MEDS: LORAZEPAM 2MG/ML CPJ IV PRN (14:32)
[2020-01-01] MEDS: SODIUM CHLORIDE 0.45% 1,000 ML IV SCH (14:32)
[2020-01-01] MEDS: FENTANYL 1,000 MCG in SODIUM CHLORIDE 0.9% 100 ML IV PRN (15:01)
[2020-01-01] MEDS ORDERED: HYDROMORPHONE HCL/PF 2MG/ML CPJ IV PRN (16:00)
[2020-01-01] MEDS: DAPTOMYCIN 750 MG in SODIUM CHLORIDE 0.9% 50 ML IV SCH (21:06)
[2020-01-01] MEDS: LACTULOSE 20G/30ML UDC PO SCH (22:15)
[2020-01-02] VITALS (40 sets, daily range): BP systolic 107–150; BP diastolic 56–103
[2020-01-02] MEDS: IPRATROPIUM/ALBUTEROL 0.5-3(2.5)MG/3ML NEB HHN SCH ×4 (01:02→20:25)
[2020-01-02] MEDS: FENTANYL 1,000 MCG in SODIUM CHLORIDE 0.9% 100 ML IV PRN ×2 (01:18→12:37)
[2020-01-02] MEDS: BLOOD SUGAR DIAGNOSTIC STRIP TEST SCH ×3 (05:30→18:14)
[2020-01-02] MEDS: CEFAZOLIN 2,000 MG in DEXT 5% WATER 100 ML IV SCH ×3 (05:39→22:33)
[2020-01-02] MEDS: INSULIN LISPRO 100 UNITS/ML SUBCUT SCH ×3 (05:39→18:00)
[2020-01-02 06:40] LABS: CHLORIDE 105 mEq/L (98-107)
[2020-01-02 06:41] LABS: BASOPHILS % 0.7 % (0.0-2.0); EOSINOPHILS % 2.7 % (0.0-5.0); HEMATOCRIT. 24.3 % (42.0-52.0); HEMOGLOBIN. 8.1 g/dL (14.0-18.0); LYMPHOCYTES % 16.8 % (20.0-50.0); MEAN CORPUSCULAR HEMOGLOBIN 26.7 pg (28.0-32.0); MEAN CORPUSCULAR VOLUME 79.6 fL (80.0-94.0); MEAN PLATELET VOLUME 7.4 fl (7.4-10.4); MONOCYTES % 10.9 % (2.0-8.0); NEUTROPHILS % 68.9 % (40.0-76.0); PLATELET 705 x1000/uL (130-400); RED BLOOD CELL COUNT 3.05 mill/uL (4.7-6.1); RED CELL DISTRIBUTION WIDTH 16.3 % (11.6-14.6)
[2020-01-02 06:44] LABS: INR 1.1; PARTIAL THROMBOPLASTIN TIME 29.8 sec (23.4-31.0); PROTHROMBIN TIME 11.5 sec (9.6-11.0)
[2020-01-02 06:59] LABS: PHOSPHORUS 4.1 mg/dL (2.5-4.9)
[2020-01-02] MEDS: MIDAZOLAM HCL 100 MG in DEXT 5% WATER 80 ML IV PRN (08:05)
[2020-01-02] MEDS: PANTOPRAZOLE SODIUM 40 MG/VIAL IV SCH (08:05)
[2020-01-02] MEDS: SODIUM HYPOCHLORITE 0.125% 473ML SOLUTION TOP SCH (09:00)
[2020-01-02] MEDS: QUETIAPINE FUMARATE 25MG TABLET PO SCH ×2 (10:13→20:16)
[2020-01-02] MEDS: TENOFOVIR 300MG TABLET PO SCH (10:13)
[2020-01-02] MEDS: DOCUSATE SODIUM SUGAR FREE 100MG/10ML UDC NG PRN (10:13)
[2020-01-02] MEDS: RALTEGRAVIR 400MG TABLET PO SCH (10:13)
[2020-01-02] MEDS: LACTULOSE 20G/30ML UDC PO SCH ×2 (10:13→20:15)
[2020-01-02] MEDS: EMTRICITABINE 200MG CAPSULE PO SCH (10:13)
[2020-01-02] MEDS ORDERED: FENTANYL CITRATE/PF 50MCG/ML 2ML VIAL ONE (10:42)
[2020-01-02] MEDS ORDERED: MIDAZOLAM HCL 5 MG/5 ML VIAL ONE (10:42)
[2020-01-02] MEDS ORDERED: MIDAZOLAM HCL 5 MG/5 ML VIAL IV PRN (11:14)
[2020-01-02] MEDS: ACETAMINOPHEN 650MG/20.3ML UDC PO PRN ×2 (12:20→20:16)
[2020-01-02] MEDS ORDERED: ROCURONIUM BROMIDE 10MG/ML VIAL 5ML IV ONE (13:23)
[2020-01-02] MEDS: SODIUM CHLORIDE 0.45% 1,000 ML IV SCH (18:14)
[2020-01-02] MEDS: LORAZEPAM 2MG/ML CPJ IV PRN (20:04)
[2020-01-02] MEDS: DAPTOMYCIN 750 MG in SODIUM CHLORIDE 0.9% 50 ML IV SCH (20:38)
[2020-01-02] MEDS: MORPHINE SULFATE 2 MG/ML CPJ (NOT FOR IM USE) IV PRN (22:34)
[2020-01-03] VITALS (11 sets, daily range): BP systolic 119–158; BP diastolic 59–114
[2020-01-03] MEDS: LORAZEPAM 2MG/ML CPJ IV PRN ×2 (00:56→10:38)
[2020-01-03] MEDS: SODIUM CHLORIDE 0.45% 1,000 ML IV SCH ×2 (00:56→23:03)
[2020-01-03] MEDS: BLOOD SUGAR DIAGNOSTIC STRIP TEST SCH ×5 (00:56→20:12)
[2020-01-03] MEDS: IPRATROPIUM/ALBUTEROL 0.5-3(2.5)MG/3ML NEB HHN SCH ×4 (01:53→20:27)
[2020-01-03] MEDS: INSULIN LISPRO 100 UNITS/ML SUBCUT SCH ×5 (06:00→23:20)
[2020-01-03 06:11] LABS: CHLORIDE 104 mEq/L (98-107)
[2020-01-03 07:56] LABS: BASOPHILS % 0.6 % (0.0-2.0); EOSINOPHILS % 1.4 % (0.0-5.0); HEMATOCRIT. 24.2 % (42.0-52.0); HEMOGLOBIN. 8.2 g/dL (14.0-18.0); LYMPHOCYTES % 15.8 % (20.0-50.0); MEAN CORPUSCULAR HEMOGLOBIN 26.8 pg (28.0-32.0); MEAN PLATELET VOLUME 7.5 fl (7.4-10.4); MONOCYTES % 9.4 % (2.0-8.0); NEUTROPHILS % 72.8 % (40.0-76.0); PLATELET 729 x1000/uL (130-400); RED BLOOD CELL COUNT 3.06 mill/uL (4.7-6.1); RED CELL DISTRIBUTION WIDTH 16.4 % (11.6-14.6)
[2020-01-03] MEDS: LACTULOSE 20G/30ML UDC PO SCH ×2 (09:06→20:12)
[2020-01-03] MEDS: PANTOPRAZOLE SODIUM 40 MG/VIAL IV SCH (09:06)
[2020-01-03] MEDS: QUETIAPINE FUMARATE 25MG TABLET PO SCH (09:07)
[2020-01-03] MEDS: ACETAMINOPHEN 325MG TABLET PO PRN (09:07)
[2020-01-03 09:46] LABS: BG BASE EXCESS 4.2 mmol/L (-2.0-2.0); BG CARBOXYHEMOGLOBIN 0.3 % (0.5-1.5); BG DEOXYHEMOGLOBIN 1.8 % (0.0-5.0); BG FRACTION INSPIRED OXYGEN 35; BG HCO3 ACT 28.3 mmol/L (22.0-26.0); BG METHEMOGLOBIN 0.4 % (0.0-1.5); BG OXYGEN SATURATION 98.2 % (92.0-98.5); BG OXYHEMOGLOBIN 97.5 % (94.0-97.0); BG PCO2 40.4 mmHg (35.0-45.0); BG PH 7.464 (7.350-7.450); BG PO2 117.2 mmHg (75.0-100.0); BG SAMPLE SITE RIGHT RADIAL; BG TIDAL VOLUME(mL) 500 mL; BG TOTAL HEMOGLOBIN 8.7 g/dL (12.0-18.0); BG VENT MODE VENT - A/C; BG VENT RATE 14 set
[2020-01-03] MEDS: SODIUM HYPOCHLORITE 0.125% 473ML SOLUTION TOP SCH (12:03)
[2020-01-03] MEDS: HALOPERIDOL LACTATE 5MG/ML VIAL IM PRN (12:15)
[2020-01-03] MEDS: TENOFOVIR 300MG TABLET PO SCH (13:05)
[2020-01-03] MEDS: RALTEGRAVIR 400MG TABLET PO SCH ×2 (13:05→17:00)
[2020-01-03] MEDS: EMTRICITABINE 200MG CAPSULE PO SCH (13:06)
[2020-01-03] MEDS: CEFAZOLIN 2,000 MG in DEXT 5% WATER 100 ML IV SCH ×2 (13:46→20:12)
[2020-01-03] MEDS: ACETAMINOPHEN 650MG/20.3ML UDC PO PRN (17:18)
[2020-01-03] MEDS: RISPERIDONE 1MG TABLET PO SCH (20:12)
[2020-01-03] MEDS: DAPTOMYCIN 750 MG in SODIUM CHLORIDE 0.9% 50 ML IV SCH (23:07)
[2020-01-04] VITALS (11 sets, daily range): BP systolic 111–148; BP diastolic 59–88
[2020-01-04] MEDS: IPRATROPIUM/ALBUTEROL 0.5-3(2.5)MG/3ML NEB HHN SCH ×4 (01:15→21:47)
[2020-01-04] MEDS: CEFAZOLIN 2,000 MG in DEXT 5% WATER 100 ML IV SCH ×3 (03:58→22:03)
[2020-01-04] MEDS: BLOOD SUGAR DIAGNOSTIC STRIP TEST SCH ×3 (03:58→17:47)
[2020-01-04 05:58] LABS: BASOPHILS % 0.5 % (0.0-2.0); EOSINOPHILS % 2.1 % (0.0-5.0); HEMATOCRIT. 23.4 % (42.0-52.0); HEMOGLOBIN. 7.8 g/dL (14.0-18.0); LYMPHOCYTES % 16.1 % (20.0-50.0); MEAN CORPUSCULAR HEMOGLOBIN 26.2 pg (28.0-32.0); MEAN CORPUSCULAR VOLUME 78.7 fL (80.0-94.0); MEAN PLATELET VOLUME 7.4 fl (7.4-10.4); MONOCYTES % 10.5 % (2.0-8.0); NEUTROPHILS % 70.8 % (40.0-76.0); PLATELET 643 x1000/uL (130-400); RED BLOOD CELL COUNT 2.97 mill/uL (4.7-6.1); RED CELL DISTRIBUTION WIDTH 16.2 % (11.6-14.6)
[2020-01-04] MEDS: INSULIN LISPRO 100 UNITS/ML SUBCUT SCH ×3 (06:00→17:47)
[2020-01-04 06:32] LABS: CHLORIDE 102 mEq/L (98-107)
[2020-01-04] MEDS: LACTULOSE 20G/30ML UDC PO SCH ×2 (08:51→22:03)
[2020-01-04] MEDS: PANTOPRAZOLE SODIUM 40 MG/VIAL IV SCH (08:51)
[2020-01-04] MEDS: RISPERIDONE 1MG TABLET PO SCH ×2 (08:52→22:03)
[2020-01-04] MEDS: SODIUM HYPOCHLORITE 0.125% 473ML SOLUTION TOP SCH (08:52)
[2020-01-04] MEDS: RALTEGRAVIR 400MG TABLET PO SCH ×2 (08:52→18:24)
[2020-01-04] MEDS: TENOFOVIR 300MG TABLET PO SCH (09:06)
[2020-01-04] MEDS: EMTRICITABINE 200MG CAPSULE PO SCH (09:06)
[2020-01-04] MEDS: ACETAMINOPHEN 650MG/20.3ML UDC PO PRN (09:11)
[2020-01-04] MEDS: LORAZEPAM 2MG/ML CPJ IV PRN (11:09)
[2020-01-04] MEDS: MORPHINE SULFATE 2 MG/ML CPJ (NOT FOR IM USE) IV PRN (12:56)
[2020-01-04] MEDS: SODIUM CHLORIDE 0.45% 1,000 ML IV SCH (22:03)
[2020-01-04] MEDS: DAPTOMYCIN 750 MG in SODIUM CHLORIDE 0.9% 50 ML IV SCH (23:39)
[2020-01-05] VITALS (12 sets, daily range): BP systolic 107–138; BP diastolic 58–72
[2020-01-05] MEDS: IPRATROPIUM/ALBUTEROL 0.5-3(2.5)MG/3ML NEB HHN SCH ×4 (03:03→21:17)
[2020-01-05] MEDS: INSULIN LISPRO 100 UNITS/ML SUBCUT SCH ×4 (06:00→18:00)
[2020-01-05] MEDS: CEFAZOLIN 2,000 MG in DEXT 5% WATER 100 ML IV SCH ×3 (06:00→22:44)
[2020-01-05] MEDS: BLOOD SUGAR DIAGNOSTIC STRIP TEST SCH ×4 (06:00→18:28)
[2020-01-05 06:04] LABS: BASOPHILS % 0.6 % (0.0-2.0); EOSINOPHILS % 2.5 % (0.0-5.0); HEMATOCRIT. 22.9 % (42.0-52.0); HEMOGLOBIN. 7.8 g/dL (14.0-18.0); LYMPHOCYTES % 20.9 % (20.0-50.0); MEAN CORPUSCULAR HEMOGLOBIN 26.7 pg (28.0-32.0); MEAN CORPUSCULAR VOLUME 78.6 fL (80.0-94.0); MEAN PLATELET VOLUME 7.4 fl (7.4-10.4); MONOCYTES % 10.5 % (2.0-8.0); NEUTROPHILS % 65.5 % (40.0-76.0); PLATELET 535 x1000/uL (130-400); RED BLOOD CELL COUNT 2.91 mill/uL (4.7-6.1); RED CELL DISTRIBUTION WIDTH 15.8 % (11.6-14.6)
[2020-01-05 06:11] LABS: CHLORIDE 104 mEq/L (98-107)
[2020-01-05 06:16] LABS: PHOSPHORUS 3.4 mg/dL (2.5-4.9)
[2020-01-05] MEDS: LACTULOSE 20G/30ML UDC PO SCH ×2 (08:57→21:12)
[2020-01-05] MEDS: PANTOPRAZOLE SODIUM 40 MG/VIAL IV SCH (08:57)
[2020-01-05] MEDS: RISPERIDONE 1MG TABLET PO SCH ×2 (08:58→21:11)
[2020-01-05] MEDS: SODIUM HYPOCHLORITE 0.125% 473ML SOLUTION TOP SCH (08:58)
[2020-01-05] MEDS: RALTEGRAVIR 400MG TABLET PO SCH ×2 (08:58→18:27)
[2020-01-05] MEDS: EMTRICITABINE 200MG CAPSULE PO SCH (08:58)
[2020-01-05] MEDS: TENOFOVIR 300MG TABLET PO SCH (08:58)
[2020-01-05] MEDS: SODIUM CHLORIDE 0.45% 1,000 ML IV SCH (16:15)
[2020-01-05] MEDS: ONDANSETRON HCL 4MG/2ML INJ IV PRN (21:12)
[2020-01-06] VITALS (12 sets, daily range): BP systolic 103–124; BP diastolic 50–66
[2020-01-06] MEDS: DAPTOMYCIN 750 MG in SODIUM CHLORIDE 0.9% 50 ML IV SCH ×2 (01:09→21:45)
[2020-01-06] MEDS: MORPHINE SULFATE 2 MG/ML CPJ (NOT FOR IM USE) IV PRN (01:44)
[2020-01-06] MEDS: IPRATROPIUM/ALBUTEROL 0.5-3(2.5)MG/3ML NEB HHN SCH ×4 (02:25→20:30)
[2020-01-06] MEDS: INSULIN LISPRO 100 UNITS/ML SUBCUT SCH ×5 (06:00→23:58)
[2020-01-06] MEDS: BLOOD SUGAR DIAGNOSTIC STRIP TEST SCH ×5 (06:00→23:43)
[2020-01-06] MEDS: CEFAZOLIN 2,000 MG in DEXT 5% WATER 100 ML IV SCH ×3 (06:53→21:12)
[2020-01-06] MEDS: LACTULOSE 20G/30ML UDC PO SCH ×2 (09:01→21:11)
[2020-01-06] MEDS: LORAZEPAM 2MG/ML CPJ IV PRN ×2 (09:02→23:50)
[2020-01-06] MEDS: EMTRICITABINE 200MG CAPSULE PO SCH (09:02)
[2020-01-06] MEDS: PANTOPRAZOLE SODIUM 40 MG/VIAL IV SCH (09:02)
[2020-01-06] MEDS: TENOFOVIR 300MG TABLET PO SCH (09:02)
[2020-01-06] MEDS: RALTEGRAVIR 400MG TABLET PO SCH ×2 (09:02→18:12)
[2020-01-06] MEDS: RISPERIDONE 1MG TABLET PO SCH ×2 (09:02→21:11)
[2020-01-06] MEDS: SODIUM HYPOCHLORITE 0.125% 473ML SOLUTION TOP SCH (09:13)
[2020-01-06 11:25] LABS: BASOPHILS % 0.8 % (0.0-2.0); EOSINOPHILS % 3.2 % (0.0-5.0); HEMOGLOBIN. 7.7 g/dL (14.0-18.0); LYMPHOCYTES % 16.4 % (20.0-50.0); MEAN CORPUSCULAR HEMOGLOBIN 27.4 pg (28.0-32.0); MEAN CORPUSCULAR VOLUME 77.8 fL (80.0-94.0); MEAN PLATELET VOLUME 7.1 fl (7.4-10.4); MONOCYTES % 12.1 % (2.0-8.0); NEUTROPHILS % 67.5 % (40.0-76.0); PLATELET 498 x1000/uL (130-400); RED BLOOD CELL COUNT 2.82 mill/uL (4.7-6.1); RED CELL DISTRIBUTION WIDTH 16.2 % (11.6-14.6)
[2020-01-06 11:26] LABS: CHLORIDE 103 mEq/L (98-107)
[2020-01-06] MEDS: SODIUM CHLORIDE 0.45% 1,000 ML IV SCH (13:10)
[2020-01-06] MEDS: ONDANSETRON HCL 4MG/2ML INJ IV PRN (23:50)
[2020-01-07] VITALS (12 sets, daily range): BP systolic 108–131; BP diastolic 60–75
[2020-01-07] MEDS: IPRATROPIUM/ALBUTEROL 0.5-3(2.5)MG/3ML NEB HHN SCH ×4 (01:00→20:06)
[2020-01-07] MEDS: ACETAMINOPHEN 650MG/20.3ML UDC PO PRN ×2 (01:09→23:04)
[2020-01-07] MEDS: CEFAZOLIN 2,000 MG in DEXT 5% WATER 100 ML IV SCH ×3 (05:16→22:35)
[2020-01-07] MEDS: BLOOD SUGAR DIAGNOSTIC STRIP TEST SCH ×3 (06:00→18:14)
[2020-01-07] MEDS: INSULIN LISPRO 100 UNITS/ML SUBCUT SCH ×2 (06:00→12:00)
[2020-01-07 07:19] LABS: CHLORIDE 102 mEq/L (98-107)
[2020-01-07 07:20] LABS: BASOPHILS % 0.6 % (0.0-2.0); EOSINOPHILS % 4.6 % (0.0-5.0); HEMATOCRIT. 22.5 % (42.0-52.0); HEMOGLOBIN. 7.6 g/dL (14.0-18.0); LYMPHOCYTES % 19.1 % (20.0-50.0); MEAN CORPUSCULAR HEMOGLOBIN 26.4 pg (28.0-32.0); MEAN CORPUSCULAR VOLUME 78.4 fL (80.0-94.0); MEAN PLATELET VOLUME 7.3 fl (7.4-10.4); MONOCYTES % 12.2 % (2.0-8.0); NEUTROPHILS % 63.5 % (40.0-76.0); PLATELET 430 x1000/uL (130-400); RED BLOOD CELL COUNT 2.87 mill/uL (4.7-6.1); RED CELL DISTRIBUTION WIDTH 16.3 % (11.6-14.6)
[2020-01-07 07:25] LABS: PHOSPHORUS 3.8 mg/dL (2.5-4.9)
[2020-01-07] MEDS: PANTOPRAZOLE SODIUM 40 MG/VIAL IV SCH (09:37)
[2020-01-07] MEDS: RISPERIDONE 1MG TABLET PO SCH ×2 (09:37→21:29)
[2020-01-07] MEDS: RALTEGRAVIR 400MG TABLET PO SCH (09:37)
[2020-01-07] MEDS: TENOFOVIR 300MG TABLET PO SCH (09:37)
[2020-01-07] MEDS: EMTRICITABINE 200MG CAPSULE PO SCH (09:37)
[2020-01-07] MEDS: LACTULOSE 20G/30ML UDC PO SCH ×2 (09:37→21:29)
[2020-01-07] MEDS: MORPHINE SULFATE 2 MG/ML CPJ (NOT FOR IM USE) IV PRN (09:38)
[2020-01-07] MEDS: SODIUM CHLORIDE 0.9% 1,000 ML IV SCH (10:43)
[2020-01-07] MEDS: ACETAMINOPHEN 325MG TABLET PO PRN ×2 (10:43→16:48)
[2020-01-07] MEDS: SODIUM HYPOCHLORITE 0.125% 473ML SOLUTION TOP SCH (10:44)
[2020-01-07] MEDS: METOPROLOL TARTRATE 25MG TABLET PO SCH ×2 (13:49→21:00)
[2020-01-07] MEDS: DAPTOMYCIN 750 MG in SODIUM CHLORIDE 0.9% 50 ML IV SCH (22:42)
[2020-01-08] VITALS (16 sets, daily range): BP systolic 95–132; BP diastolic 45–73
[2020-01-08] MEDS: IPRATROPIUM/ALBUTEROL 0.5-3(2.5)MG/3ML NEB HHN SCH ×3 (02:05→13:46)
[2020-01-08] MEDS: INSULIN LISPRO 100 UNITS/ML SUBCUT SCH ×4 (06:00→17:51)
[2020-01-08] MEDS: BLOOD SUGAR DIAGNOSTIC STRIP TEST SCH ×4 (06:00→17:51)
[2020-01-08 06:47] LABS: BASOPHILS % 0.6 % (0.0-2.0); EOSINOPHILS % 4.7 % (0.0-5.0); HEMOGLOBIN. 7.5 g/dL (14.0-18.0); LYMPHOCYTES % 16.9 % (20.0-50.0); MEAN CORPUSCULAR HEMOGLOBIN 27.1 pg (28.0-32.0); MEAN CORPUSCULAR VOLUME 79.6 fL (80.0-94.0); MEAN PLATELET VOLUME 7.3 fl (7.4-10.4); MONOCYTES % 11.7 % (2.0-8.0); NEUTROPHILS % 66.1 % (40.0-76.0); PLATELET 419 x1000/uL (130-400); RED BLOOD CELL COUNT 2.77 mill/uL (4.7-6.1); RED CELL DISTRIBUTION WIDTH 16.2 % (11.6-14.6)
[2020-01-08] MEDS: CEFAZOLIN 2,000 MG in DEXT 5% WATER 100 ML IV SCH ×3 (06:52→23:05)
[2020-01-08] MEDS: SODIUM CHLORIDE 0.9% 1,000 ML IV SCH (07:00)
[2020-01-08 07:02] LABS: CHLORIDE 104 mEq/L (98-107)
[2020-01-08] MEDS: SODIUM HYPOCHLORITE 0.125% 473ML SOLUTION TOP SCH (08:07)
[2020-01-08] MEDS: PANTOPRAZOLE SODIUM 40 MG/VIAL IV SCH (09:40)
[2020-01-08] MEDS: LACTULOSE 20G/30ML UDC PO SCH ×2 (09:40→21:00)
[2020-01-08] MEDS: ENOXAPARIN 30MG/0.3ML SYR SUBCUT SCH ×2 (09:40→21:04)
[2020-01-08] MEDS: RISPERIDONE 1MG TABLET PO SCH ×2 (09:41→21:05)
[2020-01-08] MEDS: METOPROLOL TARTRATE 25MG TABLET PO SCH ×2 (09:41→21:03)
[2020-01-08] MEDS: RALTEGRAVIR 400MG TABLET PO SCH ×2 (10:46→17:26)
[2020-01-08] MEDS: EMTRICITABINE 200MG CAPSULE PO SCH (10:47)
[2020-01-08] MEDS: TENOFOVIR 300MG TABLET PO SCH (10:47)
[2020-01-08] MEDS: DAPTOMYCIN 750 MG in SODIUM CHLORIDE 0.9% 50 ML IV SCH (21:00)
[2020-01-09] VITALS (12 sets, daily range): BP systolic 107–143; BP diastolic 57–93
[2020-01-09] MEDS: IPRATROPIUM/ALBUTEROL 0.5-3(2.5)MG/3ML NEB HHN SCH ×4 (01:17→21:06)
[2020-01-09] MEDS: ACETAMINOPHEN 650MG/20.3ML UDC PO PRN (03:46)
[2020-01-09] MEDS: CEFAZOLIN 2,000 MG in DEXT 5% WATER 100 ML IV SCH ×3 (05:58→22:17)
[2020-01-09] MEDS: INSULIN LISPRO 100 UNITS/ML SUBCUT SCH ×4 (06:00→17:44)
[2020-01-09] MEDS: BLOOD SUGAR DIAGNOSTIC STRIP TEST SCH ×4 (06:00→17:44)
[2020-01-09 06:33] LABS: CHLORIDE 102 mEq/L (98-107)
[2020-01-09 07:09] LABS: BASOPHILS % 0.8 % (0.0-2.0); HEMATOCRIT. 22.2 % (42.0-52.0); HEMOGLOBIN. 7.5 g/dL (14.0-18.0); LYMPHOCYTES % 18.5 % (20.0-50.0); MEAN CORPUSCULAR HEMOGLOBIN 26.5 pg (28.0-32.0); MEAN CORPUSCULAR VOLUME 78.2 fL (80.0-94.0); MEAN PLATELET VOLUME 7.3 fl (7.4-10.4); MONOCYTES % 11.3 % (2.0-8.0); NEUTROPHILS % 65.4 % (40.0-76.0); PLATELET 411 x1000/uL (130-400); RED BLOOD CELL COUNT 2.83 mill/uL (4.7-6.1); RED CELL DISTRIBUTION WIDTH 16.1 % (11.6-14.6)
[2020-01-09] MEDS: EMTRICITABINE 200MG CAPSULE PO SCH (08:41)
[2020-01-09] MEDS: RALTEGRAVIR 400MG TABLET PO SCH ×2 (08:41→18:09)
[2020-01-09] MEDS: LACTULOSE 20G/30ML UDC PO SCH ×2 (08:41→22:16)
[2020-01-09] MEDS: RISPERIDONE 1MG TABLET PO SCH ×2 (08:41→17:00)
[2020-01-09] MEDS: TENOFOVIR 300MG TABLET PO SCH (08:41)
[2020-01-09] MEDS: METOPROLOL TARTRATE 25MG TABLET PO SCH ×2 (08:42→22:17)
[2020-01-09] MEDS: SODIUM HYPOCHLORITE 0.125% 473ML SOLUTION TOP SCH (08:43)
[2020-01-09] MEDS: ENOXAPARIN 30MG/0.3ML SYR SUBCUT SCH ×2 (08:49→22:17)
[2020-01-09] MEDS: ACETAMINOPHEN 325MG TABLET PO PRN (09:29)
[2020-01-09] MEDS: SODIUM CHLORIDE 0.9% 1,000 ML IV SCH (09:30)
[2020-01-09] MEDS: PANTOPRAZOLE SODIUM 40 MG/VIAL IV SCH (17:00)
[2020-01-09] MEDS: DAPTOMYCIN 750 MG in SODIUM CHLORIDE 0.9% 50 ML IV SCH (17:01)
[2020-01-10] VITALS (10 sets, daily range): BP systolic 130–161; BP diastolic 30–90
[2020-01-10] MEDS: IPRATROPIUM/ALBUTEROL 0.5-3(2.5)MG/3ML NEB HHN SCH ×2 (03:44→20:30)
[2020-01-10] MEDS: SODIUM CHLORIDE 0.9% 1,000 ML IV SCH (05:23)
[2020-01-10] MEDS: CEFAZOLIN 2,000 MG in DEXT 5% WATER 100 ML IV SCH ×3 (05:23→20:01)
[2020-01-10] MEDS: INSULIN LISPRO 100 UNITS/ML SUBCUT SCH ×5 (05:34→22:56)
[2020-01-10] MEDS: BLOOD SUGAR DIAGNOSTIC STRIP TEST SCH ×5 (05:35→22:56)
[2020-01-10 06:46] LABS: CHLORIDE 102 mEq/L (98-107)
[2020-01-10 06:50] LABS: BASOPHILS % 0.7 % (0.0-2.0); EOSINOPHILS % 5.4 % (0.0-5.0); HEMATOCRIT. 23.5 % (42.0-52.0); HEMOGLOBIN. 7.8 g/dL (14.0-18.0); LYMPHOCYTES % 20.7 % (20.0-50.0); MEAN CORPUSCULAR HEMOGLOBIN 26.2 pg (28.0-32.0); MEAN CORPUSCULAR VOLUME 78.7 fL (80.0-94.0); MEAN PLATELET VOLUME 7.2 fl (7.4-10.4); MONOCYTES % 11.9 % (2.0-8.0); NEUTROPHILS % 61.3 % (40.0-76.0); PLATELET 435 x1000/uL (130-400); RED BLOOD CELL COUNT 2.99 mill/uL (4.7-6.1); RED CELL DISTRIBUTION WIDTH 16.2 % (11.6-14.6)
[2020-01-10] MEDS: EMTRICITABINE 200MG CAPSULE PO SCH (09:15)
[2020-01-10] MEDS: TENOFOVIR 300MG TABLET PO SCH (09:15)
[2020-01-10] MEDS: PANTOPRAZOLE SODIUM 40 MG/VIAL IV SCH (09:15)
[2020-01-10] MEDS: ENOXAPARIN 30MG/0.3ML SYR SUBCUT SCH ×2 (09:16→20:02)
[2020-01-10] MEDS: METOPROLOL TARTRATE 25MG TABLET PO SCH ×2 (09:17→20:01)
[2020-01-10] MEDS: LACTULOSE 20G/30ML UDC PO SCH ×2 (09:18→20:01)
[2020-01-10] MEDS: RISPERIDONE 1MG TABLET PO SCH ×2 (09:18→20:01)
[2020-01-10] MEDS: SODIUM HYPOCHLORITE 0.125% 473ML SOLUTION TOP SCH (09:20)
[2020-01-10] MEDS: RALTEGRAVIR 400MG TABLET PO SCH ×2 (09:22→17:09)
[2020-01-10] MEDS: DAPTOMYCIN 750 MG in SODIUM CHLORIDE 0.9% 50 ML IV SCH (15:56)
[2020-01-11] VITALS (12 sets, daily range): BP systolic 111–141; BP diastolic 62–76
[2020-01-11] MEDS: SODIUM CHLORIDE 0.9% 1,000 ML IV SCH ×2 (01:31→10:26)
[2020-01-11] MEDS: IPRATROPIUM/ALBUTEROL 0.5-3(2.5)MG/3ML NEB HHN SCH ×4 (04:12→21:27)
[2020-01-11] MEDS: CEFAZOLIN 2,000 MG in DEXT 5% WATER 100 ML IV SCH ×3 (04:26→21:08)
[2020-01-11] MEDS: BLOOD SUGAR DIAGNOSTIC STRIP TEST SCH ×3 (04:52→17:15)
[2020-01-11] MEDS: INSULIN LISPRO 100 UNITS/ML SUBCUT SCH ×3 (04:52→17:15)
[2020-01-11 06:41] LABS: BASOPHILS % 0.9 % (0.0-2.0); EOSINOPHILS % 5.3 % (0.0-5.0); HEMATOCRIT. 23.9 % (42.0-52.0); HEMOGLOBIN. 8.1 g/dL (14.0-18.0); LYMPHOCYTES % 22.9 % (20.0-50.0); MEAN CORPUSCULAR HEMOGLOBIN 26.7 pg (28.0-32.0); MEAN PLATELET VOLUME 7.1 fl (7.4-10.4); NEUTROPHILS % 58.9 % (40.0-76.0); PLATELET 456 x1000/uL (130-400); RED BLOOD CELL COUNT 3.03 mill/uL (4.7-6.1)
[2020-01-11 07:41] LABS: CHLORIDE 102 mEq/L (98-107)
[2020-01-11] MEDS: ENOXAPARIN 30MG/0.3ML SYR SUBCUT SCH ×2 (08:16→21:00)
[2020-01-11] MEDS: SODIUM HYPOCHLORITE 0.125% 473ML SOLUTION TOP SCH (08:17)
[2020-01-11] MEDS: PANTOPRAZOLE SODIUM 40 MG/VIAL IV SCH (08:32)
[2020-01-11] MEDS: METOPROLOL TARTRATE 25MG TABLET PO SCH ×2 (08:32→21:08)
[2020-01-11] MEDS: LACTULOSE 20G/30ML UDC PO SCH ×2 (08:32→21:08)
[2020-01-11] MEDS: RALTEGRAVIR 400MG TABLET PO SCH ×2 (08:32→17:15)
[2020-01-11] MEDS: RISPERIDONE 1MG TABLET PO SCH ×2 (08:32→21:07)
[2020-01-11] MEDS: TENOFOVIR 300MG TABLET PO SCH (08:33)
[2020-01-11] MEDS: EMTRICITABINE 200MG CAPSULE PO SCH (08:33)
[2020-01-11 10:10] LABS: BG BASE EXCESS 2.7 mmol/L (-2.0-2.0); BG CARBOXYHEMOGLOBIN 0.3 % (0.5-1.5); BG DEOXYHEMOGLOBIN 1.3 % (0.0-5.0); BG FRACTION INSPIRED OXYGEN 35; BG HCO3 ACT 26.3 mmol/L (22.0-26.0); BG METHEMOGLOBIN 0.5 % (0.0-1.5); BG OXYGEN SATURATION 98.7 % (92.0-98.5); BG OXYHEMOGLOBIN 97.9 % (94.0-97.0); BG PH 7.482 (7.350-7.450); BG PO2 154.1 mmHg (75.0-100.0); BG PRESSURE SUPPORT 8; BG SAMPLE SITE LEFT RADIAL; BG TOTAL HEMOGLOBIN 7.9 g/dL (12.0-18.0); BG VENT MODE VENT - CPAP
[2020-01-11] MEDS: DAPTOMYCIN 750 MG in SODIUM CHLORIDE 0.9% 50 ML IV SCH (13:02)
[2020-01-11] MEDS: ACETAMINOPHEN 650MG/20.3ML UDC PO PRN (21:08)
[2020-01-12] VITALS (12 sets, daily range): BP systolic 116–129; BP diastolic 65–73
[2020-01-12] MEDS: BLOOD SUGAR DIAGNOSTIC STRIP TEST SCH ×4 (00:32→17:34)
[2020-01-12] MEDS: IPRATROPIUM/ALBUTEROL 0.5-3(2.5)MG/3ML NEB HHN SCH ×3 (03:10→13:56)
[2020-01-12] MEDS: CEFAZOLIN 2,000 MG in DEXT 5% WATER 100 ML IV SCH ×3 (05:51→22:19)
[2020-01-12] MEDS: INSULIN LISPRO 100 UNITS/ML SUBCUT SCH ×4 (05:51→17:34)
[2020-01-12] MEDS: TENOFOVIR 300MG TABLET PO SCH (08:57)
[2020-01-12] MEDS: RALTEGRAVIR 400MG TABLET PO SCH ×2 (08:57→16:22)
[2020-01-12] MEDS: EMTRICITABINE 200MG CAPSULE PO SCH (08:57)
[2020-01-12] MEDS: LACTULOSE 20G/30ML UDC PO SCH ×2 (08:57→21:00)
[2020-01-12] MEDS: PANTOPRAZOLE SODIUM 40 MG/VIAL IV SCH (08:57)
[2020-01-12] MEDS: RISPERIDONE 1MG TABLET PO SCH ×2 (08:57→21:00)
[2020-01-12] MEDS: ACETAMINOPHEN 650MG/20.3ML UDC PO PRN ×2 (08:57→22:19)
[2020-01-12] MEDS: SODIUM HYPOCHLORITE 0.125% 473ML SOLUTION TOP SCH (08:58)
[2020-01-12] MEDS: METOPROLOL TARTRATE 25MG TABLET PO SCH ×2 (08:58→21:00)
[2020-01-12] MEDS: ENOXAPARIN 30MG/0.3ML SYR SUBCUT SCH ×2 (08:58→21:00)
[2020-01-12] MEDS: DAPTOMYCIN 750 MG in SODIUM CHLORIDE 0.9% 50 ML IV SCH (13:44)
[2020-01-12] MEDS: SODIUM CHLORIDE 0.9% 1,000 ML IV SCH (16:22)
[2020-01-13] VITALS (12 sets, daily range): BP systolic 110–128; BP diastolic 61–85
[2020-01-13] MEDS: BLOOD SUGAR DIAGNOSTIC STRIP TEST SCH ×4 (00:57→17:31)
[2020-01-13] MEDS: IPRATROPIUM/ALBUTEROL 0.5-3(2.5)MG/3ML NEB HHN SCH ×4 (03:38→20:33)
[2020-01-13] MEDS: ACETAMINOPHEN 650MG/20.3ML UDC PO PRN (05:04)
[2020-01-13] MEDS: CEFAZOLIN 2,000 MG in DEXT 5% WATER 100 ML IV SCH ×2 (05:04→13:35)
[2020-01-13] MEDS: INSULIN LISPRO 100 UNITS/ML SUBCUT SCH ×4 (05:19→17:32)
[2020-01-13 05:45] LABS: BASOPHILS % 0.6 % (0.0-2.0); EOSINOPHILS % 4.1 % (0.0-5.0); HEMATOCRIT. 23.9 % (42.0-52.0); HEMOGLOBIN. 8.1 g/dL (14.0-18.0); LYMPHOCYTES % 24.9 % (20.0-50.0); MEAN CORPUSCULAR HEMOGLOBIN 26.7 pg (28.0-32.0); MEAN CORPUSCULAR VOLUME 78.6 fL (80.0-94.0); MONOCYTES % 13.6 % (2.0-8.0); NEUTROPHILS % 56.8 % (40.0-76.0); PLATELET 487 x1000/uL (130-400); RED BLOOD CELL COUNT 3.04 mill/uL (4.7-6.1); RED CELL DISTRIBUTION WIDTH 16.2 % (11.6-14.6)
[2020-01-13 05:52] LABS: CHLORIDE 102 mEq/L (98-107)
[2020-01-13] MEDS: ENOXAPARIN 30MG/0.3ML SYR SUBCUT SCH ×2 (09:00→20:43)
[2020-01-13] MEDS: SODIUM HYPOCHLORITE 0.125% 473ML SOLUTION TOP SCH (09:00)
[2020-01-13] MEDS: RALTEGRAVIR 400MG TABLET PO SCH ×2 (09:12→16:40)
[2020-01-13] MEDS: RISPERIDONE 1MG TABLET PO SCH ×2 (09:12→20:43)
[2020-01-13] MEDS: PANTOPRAZOLE SODIUM 40 MG/VIAL IV SCH (09:12)
[2020-01-13] MEDS: TENOFOVIR 300MG TABLET PO SCH (09:12)
[2020-01-13] MEDS: EMTRICITABINE 200MG CAPSULE PO SCH (09:12)
[2020-01-13] MEDS: METOPROLOL TARTRATE 25MG TABLET PO SCH ×2 (09:12→20:43)
[2020-01-13] MEDS: LACTULOSE 20G/30ML UDC PO SCH ×2 (09:13→20:44)
[2020-01-13] MEDS: SODIUM CHLORIDE 0.9% 1,000 ML IV SCH (13:35)
[2020-01-13] MEDS: DAPTOMYCIN 750 MG in SODIUM CHLORIDE 0.9% 50 ML IV SCH (13:35)
[2020-01-13] MEDS: ACETAMINOPHEN 325MG TABLET PO PRN (20:43)
[2020-01-14] VITALS (12 sets, daily range): BP systolic 119–144; BP diastolic 62–96
[2020-01-14] MEDS: CEFAZOLIN 2,000 MG in DEXT 5% WATER 100 ML IV SCH ×2 (00:58→06:34)
[2020-01-14] MEDS: BLOOD SUGAR DIAGNOSTIC STRIP TEST SCH ×5 (00:59→22:49)
[2020-01-14] MEDS: IPRATROPIUM/ALBUTEROL 0.5-3(2.5)MG/3ML NEB HHN SCH ×4 (04:40→20:08)
[2020-01-14] MEDS: INSULIN LISPRO 100 UNITS/ML SUBCUT SCH ×5 (06:00→22:49)
[2020-01-14 06:38] LABS: BASOPHILS % 0.8 % (0.0-2.0); EOSINOPHILS % 3.5 % (0.0-5.0); HEMATOCRIT. 22.7 % (42.0-52.0); HEMOGLOBIN. 7.8 g/dL (14.0-18.0); LYMPHOCYTES % 26.2 % (20.0-50.0); MEAN CORPUSCULAR HEMOGLOBIN 26.9 pg (28.0-32.0); MEAN CORPUSCULAR VOLUME 78.3 fL (80.0-94.0); MEAN PLATELET VOLUME 6.9 fl (7.4-10.4); MONOCYTES % 13.3 % (2.0-8.0); NEUTROPHILS % 56.2 % (40.0-76.0); PLATELET 489 x1000/uL (130-400); RED CELL DISTRIBUTION WIDTH 16.5 % (11.6-14.6)
[2020-01-14 07:05] LABS: CHLORIDE 102 mEq/L (98-107)
[2020-01-14] MEDS: LACTULOSE 20G/30ML UDC PO SCH ×2 (08:24→21:00)
[2020-01-14] MEDS: RALTEGRAVIR 400MG TABLET PO SCH ×2 (08:25→19:09)
[2020-01-14] MEDS: EMTRICITABINE 200MG CAPSULE PO SCH (08:25)
[2020-01-14] MEDS: RISPERIDONE 1MG TABLET PO SCH ×2 (08:25→22:00)
[2020-01-14] MEDS: ENOXAPARIN 30MG/0.3ML SYR SUBCUT SCH ×2 (08:25→21:59)
[2020-01-14] MEDS: TENOFOVIR 300MG TABLET PO SCH (08:25)
[2020-01-14] MEDS: PANTOPRAZOLE SODIUM 40 MG/VIAL IV SCH (08:25)
[2020-01-14] MEDS: SODIUM HYPOCHLORITE 0.125% 473ML SOLUTION TOP SCH (08:27)
[2020-01-14] MEDS: METOPROLOL TARTRATE 25MG TABLET PO SCH ×2 (08:36→22:00)
[2020-01-14] MEDS: SODIUM CHLORIDE 0.9% 1,000 ML IV SCH ×2 (08:52→22:49)
[2020-01-14] MEDS: DAPTOMYCIN 750 MG in SODIUM CHLORIDE 0.9% 50 ML IV SCH (14:52)
[2020-01-14] MEDS: ACETAMINOPHEN 650MG/20.3ML UDC PO PRN ×3 (16:27→19:07)
[2020-01-15] VITALS (12 sets, daily range): BP systolic 117–140; BP diastolic 61–92
[2020-01-15] MEDS: IPRATROPIUM/ALBUTEROL 0.5-3(2.5)MG/3ML NEB HHN SCH
[2020-01-15] MEDS: INSULIN LISPRO 100 UNITS/ML SUBCUT SCH ×3 (06:00→17:41)
[2020-01-15] MEDS: BLOOD SUGAR DIAGNOSTIC STRIP TEST SCH ×3 (06:08→17:41)
[2020-01-15] MEDS: RISPERIDONE 1MG TABLET PO SCH ×2 (08:51→20:44)
[2020-01-15] MEDS: METOPROLOL TARTRATE 25MG TABLET PO SCH ×2 (08:51→20:54)
[2020-01-15] MEDS: EMTRICITABINE 200MG CAPSULE PO SCH (08:52)
[2020-01-15] MEDS: TENOFOVIR 300MG TABLET PO SCH (08:52)
[2020-01-15] MEDS: RALTEGRAVIR 400MG TABLET PO SCH ×2 (08:52→17:40)
[2020-01-15] MEDS: ENOXAPARIN 30MG/0.3ML SYR SUBCUT SCH ×2 (08:54→20:44)
[2020-01-15] MEDS: LACTULOSE 20G/30ML UDC PO SCH ×2 (08:58→20:44)
[2020-01-15] MEDS: PANTOPRAZOLE SODIUM 40 MG/VIAL IV SCH (08:58)
[2020-01-15] MEDS: SODIUM HYPOCHLORITE 0.125% 473ML SOLUTION TOP SCH (09:00)
[2020-01-15] MEDS: ACETAMINOPHEN 650MG/20.3ML UDC PO PRN (10:36)
[2020-01-15] MEDS ORDERED: HYDROMORPHONE HCL/PF 2MG/ML CPJ IV PRN (12:45)
[2020-01-15] MEDS: DAPTOMYCIN 750 MG in SODIUM CHLORIDE 0.9% 50 ML IV SCH (15:28)
[2020-01-16] VITALS (12 sets, daily range): BP systolic 106–128; BP diastolic 58–83
[2020-01-16] MEDS: BLOOD SUGAR DIAGNOSTIC STRIP TEST SCH ×4 (00:08→17:16)
[2020-01-16] MEDS: SODIUM CHLORIDE 0.9% 1,000 ML IV SCH ×2 (00:08→20:44)
[2020-01-16] MEDS: INSULIN LISPRO 100 UNITS/ML SUBCUT SCH ×4 (06:00→17:26)
[2020-01-16] MEDS: PANTOPRAZOLE SODIUM 40 MG/VIAL IV SCH (09:00)
[2020-01-16] MEDS: LACTULOSE 20G/30ML UDC PO SCH ×2 (09:00→20:43)
[2020-01-16] MEDS: TENOFOVIR 300MG TABLET PO SCH (09:01)
[2020-01-16] MEDS: EMTRICITABINE 200MG CAPSULE PO SCH (09:01)
[2020-01-16] MEDS: METOPROLOL TARTRATE 25MG TABLET PO SCH ×2 (09:01→20:43)
[2020-01-16] MEDS: RISPERIDONE 1MG TABLET PO SCH ×2 (09:01→20:42)
[2020-01-16] MEDS: ENOXAPARIN 30MG/0.3ML SYR SUBCUT SCH ×2 (09:01→20:43)
[2020-01-16] MEDS: RALTEGRAVIR 400MG TABLET PO SCH ×2 (09:01→17:16)
[2020-01-16] MEDS: SODIUM HYPOCHLORITE 0.125% 473ML SOLUTION TOP SCH (09:02)
[2020-01-16] MEDS: HYDROCODONE/ACETAMINOPHEN 5/325MG TABLET PO PRN (12:16)
[2020-01-16] MEDS ORDERED: IPRATROPIUM/ALBUTEROL 0.5-3(2.5)MG/3ML NEB HHN PRN (12:30)
[2020-01-16] MEDS: DAPTOMYCIN 750 MG in SODIUM CHLORIDE 0.9% 50 ML IV SCH (16:23)
[2020-01-16] MEDS: IPRATROPIUM/ALBUTEROL 0.5-3(2.5)MG/3ML NEB HHN SCH (22:24)
[2020-01-16] MEDS: ACETAMINOPHEN 650MG/20.3ML UDC PO PRN (22:29)
[2020-01-16] MEDS: ACETYLCYSTEINE 100MG/ML 10% VIAL 4ML INH SCH (23:00)
[2020-01-17] VITALS (12 sets, daily range): BP systolic 111–134; BP diastolic 57–75
[2020-01-17] MEDS: IPRATROPIUM/ALBUTEROL 0.5-3(2.5)MG/3ML NEB HHN SCH ×4 (01:03→20:50)
[2020-01-17] MEDS: PANTOPRAZOLE SODIUM 40 MG/VIAL IV SCH (08:57)
[2020-01-17] MEDS: ENOXAPARIN 30MG/0.3ML SYR SUBCUT SCH ×2 (08:57→21:10)
[2020-01-17] MEDS: EMTRICITABINE 200MG CAPSULE PO SCH (08:57)
[2020-01-17] MEDS: TENOFOVIR 300MG TABLET PO SCH (08:58)
[2020-01-17] MEDS: RISPERIDONE 1MG TABLET PO SCH ×2 (08:58→21:11)
[2020-01-17] MEDS: METOPROLOL TARTRATE 25MG TABLET PO SCH ×2 (08:58→21:11)
[2020-01-17] MEDS: RALTEGRAVIR 400MG TABLET PO SCH ×2 (08:58→16:50)
[2020-01-17] MEDS: LACTULOSE 20G/30ML UDC PO SCH ×2 (08:59→21:00)
[2020-01-17] MEDS: ACETYLCYSTEINE 100MG/ML 10% VIAL 4ML INH SCH ×2 (09:12→21:36)
[2020-01-17] MEDS: HYDROCODONE/ACETAMINOPHEN 5/325MG TABLET PO PRN ×2 (10:45→21:29)
[2020-01-17] MEDS: DAPTOMYCIN 750 MG in SODIUM CHLORIDE 0.9% 50 ML IV SCH (14:40)
[2020-01-17] MEDS: ACETAMINOPHEN 650MG/20.3ML UDC PO PRN (16:50)
[2020-01-17] MEDS: SODIUM CHLORIDE 0.9% 1,000 ML IV SCH (16:50)
[2020-01-18] VITALS (13 sets, daily range): BP systolic 105–129; BP diastolic 58–75
[2020-01-18] MEDS: IPRATROPIUM/ALBUTEROL 0.5-3(2.5)MG/3ML NEB HHN SCH ×4 (00:58→20:59)
[2020-01-18] MEDS: ACETYLCYSTEINE 100MG/ML 10% VIAL 4ML INH SCH (08:15)
[2020-01-18] MEDS: LACTULOSE 20G/30ML UDC PO SCH ×2 (09:00→20:21)
[2020-01-18] MEDS: ENOXAPARIN 30MG/0.3ML SYR SUBCUT SCH ×2 (10:15→20:21)
[2020-01-18] MEDS: PANTOPRAZOLE SODIUM 40 MG/VIAL IV SCH (10:15)
[2020-01-18] MEDS: EMTRICITABINE 200MG CAPSULE PO SCH (10:16)
[2020-01-18] MEDS: RALTEGRAVIR 400MG TABLET PO SCH ×2 (10:16→17:31)
[2020-01-18] MEDS: TENOFOVIR 300MG TABLET PO SCH (10:16)
[2020-01-18] MEDS: HYDROCODONE/ACETAMINOPHEN 5/325MG TABLET PO PRN ×2 (10:16→17:33)
[2020-01-18] MEDS: RISPERIDONE 1MG TABLET PO SCH ×2 (10:16→20:21)
[2020-01-18] MEDS: METOPROLOL TARTRATE 25MG TABLET PO SCH ×2 (10:16→20:21)
[2020-01-18 13:34] LABS: HEMATOCRIT 23.8 % (42.0-52.0); MEAN CORPUSCULAR HEMOGLOBIN 26.1 pg (28.0-32.0); MEAN CORPUSCULAR VOLUME 77.5 fL (80.0-94.0); PLATELET 493 x1000/uL (130-400); RED BLOOD CELL COUNT 3.07 mill/uL (4.7-6.1); RED CELL DISTRIBUTION WIDTH 16.1 % (11.6-14.6)
[2020-01-18 13:48] LABS: CHLORIDE 103 mEq/L (98-107)
[2020-01-18] MEDS: SODIUM CHLORIDE 0.9% 1,000 ML IV SCH (13:48)
[2020-01-18 13:56] LABS: CREATINE KINASE 40 IU/L (39-308)
[2020-01-18] MEDS: DAPTOMYCIN 750 MG in SODIUM CHLORIDE 0.9% 50 ML IV SCH (14:36)
[2020-01-19] VITALS (11 sets, daily range): BP systolic 103–127; BP diastolic 62–75
[2020-01-19] MEDS: HYDROCODONE/ACETAMINOPHEN 5/325MG TABLET PO PRN ×3 (01:18→22:32)
[2020-01-19] MEDS: IPRATROPIUM/ALBUTEROL 0.5-3(2.5)MG/3ML NEB HHN SCH ×4 (02:35→21:01)
[2020-01-19] MEDS: TENOFOVIR 300MG TABLET PO SCH (08:23)
[2020-01-19] MEDS: EMTRICITABINE 200MG CAPSULE PO SCH (08:23)
[2020-01-19] MEDS: RALTEGRAVIR 400MG TABLET PO SCH ×2 (08:24→16:14)
[2020-01-19] MEDS: ENOXAPARIN 30MG/0.3ML SYR SUBCUT SCH ×2 (08:24→22:33)
[2020-01-19] MEDS: SODIUM CHLORIDE 0.9% 1,000 ML IV SCH (08:25)
[2020-01-19] MEDS: RISPERIDONE 1MG TABLET PO SCH ×2 (08:25→22:30)
[2020-01-19] MEDS: METOPROLOL TARTRATE 25MG TABLET PO SCH ×2 (08:25→22:33)
[2020-01-19] MEDS: LACTULOSE 20G/30ML UDC PO SCH ×3 (08:26→22:34)
[2020-01-19] MEDS: ACETYLCYSTEINE 100MG/ML 10% VIAL 4ML INH SCH (08:27)
[2020-01-19 09:00] LABS: BASOPHILS % 0.5 % (0.0-2.0); EOSINOPHILS % 3.1 % (0.0-5.0); HEMATOCRIT. 24.2 % (42.0-52.0); HEMOGLOBIN. 8.1 g/dL (14.0-18.0); LYMPHOCYTES % 20.9 % (20.0-50.0); MEAN CORPUSCULAR HEMOGLOBIN 26.1 pg (28.0-32.0); MEAN CORPUSCULAR VOLUME 78.1 fL (80.0-94.0); MEAN PLATELET VOLUME 6.7 fl (7.4-10.4); MONOCYTES % 12.1 % (2.0-8.0); NEUTROPHILS % 63.4 % (40.0-76.0); PLATELET 492 x1000/uL (130-400); RED CELL DISTRIBUTION WIDTH 16.3 % (11.6-14.6)
[2020-01-19 09:05] LABS: CHLORIDE 102 mEq/L (98-107)
[2020-01-19] MEDS: DAPTOMYCIN 750 MG in SODIUM CHLORIDE 0.9% 50 ML IV SCH (13:40)
[2020-01-20] VITALS (12 sets, daily range): BP systolic 102–137; BP diastolic 56–69
[2020-01-20] MEDS: ACETYLCYSTEINE 100MG/ML 10% VIAL 4ML INH SCH ×3 (02:38→20:57)
[2020-01-20] MEDS: SODIUM CHLORIDE 0.9% 1,000 ML IV SCH (06:12)
[2020-01-20] MEDS: HYDROCODONE/ACETAMINOPHEN 5/325MG TABLET PO PRN ×3 (07:38→23:39)
[2020-01-20] MEDS: LACTULOSE 20G/30ML UDC PO SCH ×2 (09:00→21:00)
[2020-01-20] MEDS: METOPROLOL TARTRATE 25MG TABLET PO SCH ×2 (09:00→21:34)
[2020-01-20] MEDS: IPRATROPIUM/ALBUTEROL 0.5-3(2.5)MG/3ML NEB HHN SCH ×3 (09:30→20:57)
[2020-01-20] MEDS: TENOFOVIR 300MG TABLET PO SCH (09:53)
[2020-01-20] MEDS: ENOXAPARIN 30MG/0.3ML SYR SUBCUT SCH ×2 (09:53→21:35)
[2020-01-20] MEDS: EMTRICITABINE 200MG CAPSULE PO SCH (09:54)
[2020-01-20] MEDS: RISPERIDONE 1MG TABLET PO SCH ×2 (09:54→21:34)
[2020-01-20] MEDS: RALTEGRAVIR 400MG TABLET PO SCH ×2 (09:54→17:33)
[2020-01-20] MEDS: DAPTOMYCIN 750 MG in SODIUM CHLORIDE 0.9% 50 ML IV SCH (14:21)
[2020-01-21] VITALS (14 sets, daily range): BP systolic 103–129; BP diastolic 54–84
[2020-01-21] MEDS: IPRATROPIUM/ALBUTEROL 0.5-3(2.5)MG/3ML NEB HHN SCH ×4 (01:02→20:39)
[2020-01-21] MEDS: SODIUM CHLORIDE 0.9% 1,000 ML IV SCH (03:23)
[2020-01-21] MEDS: RISPERIDONE 1MG TABLET PO SCH ×2 (08:25→21:53)
[2020-01-21] MEDS: TENOFOVIR 300MG TABLET PO SCH (08:25)
[2020-01-21] MEDS: EMTRICITABINE 200MG CAPSULE PO SCH (08:25)
[2020-01-21] MEDS: ENOXAPARIN 30MG/0.3ML SYR SUBCUT SCH ×2 (08:25→22:02)
[2020-01-21] MEDS: RALTEGRAVIR 400MG TABLET PO SCH ×2 (08:25→17:07)
[2020-01-21] MEDS: METOPROLOL TARTRATE 25MG TABLET PO SCH ×2 (08:27→22:01)
[2020-01-21] MEDS: LACTULOSE 20G/30ML UDC PO SCH ×2 (08:28→22:01)
[2020-01-21 10:38] LABS: BASOPHILS % 0.6 % (0.0-2.0); EOSINOPHILS % 3.2 % (0.0-5.0); HEMATOCRIT. 23.7 % (42.0-52.0); HEMOGLOBIN. 8.1 g/dL (14.0-18.0); LYMPHOCYTES % 30.5 % (20.0-50.0); MEAN CORPUSCULAR HEMOGLOBIN 26.4 pg (28.0-32.0); MONOCYTES % 11.1 % (2.0-8.0); NEUTROPHILS % 54.6 % (40.0-76.0); PLATELET 486 x1000/uL (130-400); RED BLOOD CELL COUNT 3.08 mill/uL (4.7-6.1); RED CELL DISTRIBUTION WIDTH 16.5 % (11.6-14.6)
[2020-01-21] MEDS: HYDROCODONE/ACETAMINOPHEN 5/325MG TABLET PO PRN (10:45)
[2020-01-21 10:52] LABS: CHLORIDE 102 mEq/L (98-107)
[2020-01-21] MEDS: DAPTOMYCIN 750 MG in SODIUM CHLORIDE 0.9% 50 ML IV SCH (14:32)
[2020-01-22] VITALS (12 sets, daily range): BP systolic 103–126; BP diastolic 55–80
[2020-01-22] MEDS: IPRATROPIUM/ALBUTEROL 0.5-3(2.5)MG/3ML NEB HHN SCH ×4 (01:55→20:42)
[2020-01-22 08:51] LABS: BASOPHILS % 0.5 % (0.0-2.0); EOSINOPHILS % 2.8 % (0.0-5.0); HEMATOCRIT. 23.9 % (42.0-52.0); LYMPHOCYTES % 36.5 % (20.0-50.0); MEAN CORPUSCULAR HEMOGLOBIN 25.9 pg (28.0-32.0); MEAN CORPUSCULAR VOLUME 77.1 fL (80.0-94.0); MEAN PLATELET VOLUME 6.6 fl (7.4-10.4); MONOCYTES % 11.8 % (2.0-8.0); NEUTROPHILS % 48.4 % (40.0-76.0); PLATELET 475 x1000/uL (130-400); RED CELL DISTRIBUTION WIDTH 16.3 % (11.6-14.6)
[2020-01-22 08:55] LABS: CHLORIDE 101 mEq/L (98-107)
[2020-01-22] MEDS: LACTULOSE 20G/30ML UDC PO SCH ×2 (09:00→20:49)
[2020-01-22] MEDS: RISPERIDONE 1MG TABLET PO SCH ×2 (09:29→20:47)
[2020-01-22] MEDS: ENOXAPARIN 30MG/0.3ML SYR SUBCUT SCH ×2 (09:29→20:47)
[2020-01-22] MEDS: EMTRICITABINE 200MG CAPSULE PO SCH (09:29)
[2020-01-22] MEDS: METOPROLOL TARTRATE 25MG TABLET PO SCH ×2 (09:30→20:48)
[2020-01-22] MEDS: TENOFOVIR 300MG TABLET PO SCH (09:31)
[2020-01-22] MEDS: SODIUM CHLORIDE 0.9% 1,000 ML IV SCH ×2 (09:31→17:38)
[2020-01-22] MEDS: RALTEGRAVIR 400MG TABLET PO SCH ×2 (09:31→17:38)
[2020-01-22] MEDS: DAPTOMYCIN 750 MG in SODIUM CHLORIDE 0.9% 50 ML IV SCH (13:30)
[2020-01-22] MEDS: HYDROCODONE/ACETAMINOPHEN 5/325MG TABLET PO PRN (16:30)
[2020-01-23] VITALS (12 sets, daily range): BP systolic 89–128; BP diastolic 50–73
[2020-01-23] MEDS: IPRATROPIUM/ALBUTEROL 0.5-3(2.5)MG/3ML NEB HHN SCH ×4 (00:49→20:47)
[2020-01-23] MEDS: HYDROCODONE/ACETAMINOPHEN 5/325MG TABLET PO PRN ×3 (05:14→19:14)
[2020-01-23 06:15] LABS: CHLORIDE 103 mEq/L (98-107)
[2020-01-23 06:18] LABS: BASOPHILS % 0.6 % (0.0-2.0); EOSINOPHILS % 3.1 % (0.0-5.0); HEMATOCRIT. 23.2 % (42.0-52.0); HEMOGLOBIN. 7.8 g/dL (14.0-18.0); LYMPHOCYTES % 32.1 % (20.0-50.0); MEAN CORPUSCULAR VOLUME 77.3 fL (80.0-94.0); MEAN PLATELET VOLUME 6.9 fl (7.4-10.4); MONOCYTES % 12.6 % (2.0-8.0); NEUTROPHILS % 51.6 % (40.0-76.0); PLATELET 474 x1000/uL (130-400); RED CELL DISTRIBUTION WIDTH 16.4 % (11.6-14.6)
[2020-01-23] MEDS: LACTULOSE 20G/30ML UDC PO SCH ×2 (08:45→21:00)
[2020-01-23] MEDS: RISPERIDONE 1MG TABLET PO SCH ×2 (08:45→21:39)
[2020-01-23] MEDS: TENOFOVIR 300MG TABLET PO SCH (08:45)
[2020-01-23] MEDS: RALTEGRAVIR 400MG TABLET PO SCH ×2 (08:45→17:17)
[2020-01-23] MEDS: EMTRICITABINE 200MG CAPSULE PO SCH (08:45)
[2020-01-23] MEDS: METOPROLOL TARTRATE 25MG TABLET PO SCH ×2 (08:45→21:00)
[2020-01-23] MEDS: ENOXAPARIN 30MG/0.3ML SYR SUBCUT SCH ×2 (08:46→21:39)
[2020-01-23] MEDS: DAPTOMYCIN 750 MG in SODIUM CHLORIDE 0.9% 50 ML IV SCH (15:00)
[2020-01-23] MEDS: SODIUM CHLORIDE 0.9% 1,000 ML IV SCH (15:00)
[2020-01-24] VITALS (12 sets, daily range): BP systolic 99–133; BP diastolic 42–80
[2020-01-24] MEDS: IPRATROPIUM/ALBUTEROL 0.5-3(2.5)MG/3ML NEB HHN SCH ×4 (02:33→20:14)
[2020-01-24] MEDS: HYDROCODONE/ACETAMINOPHEN 5/325MG TABLET PO PRN ×2 (04:02→14:01)
[2020-01-24] MEDS: RALTEGRAVIR 400MG TABLET PO SCH ×2 (08:23→17:20)
[2020-01-24] MEDS: TENOFOVIR 300MG TABLET PO SCH (08:24)
[2020-01-24] MEDS: EMTRICITABINE 200MG CAPSULE PO SCH (08:24)
[2020-01-24] MEDS: METOPROLOL TARTRATE 25MG TABLET PO SCH ×2 (08:24→20:49)
[2020-01-24] MEDS: RISPERIDONE 1MG TABLET PO SCH ×2 (08:24→20:49)
[2020-01-24] MEDS: ENOXAPARIN 30MG/0.3ML SYR SUBCUT SCH ×2 (08:28→20:38)
[2020-01-24] MEDS: LACTULOSE 20G/30ML UDC PO SCH ×2 (08:28→20:49)
[2020-01-24] MEDS: SODIUM CHLORIDE 0.9% 1,000 ML IV SCH (11:13)
[2020-01-24] MEDS: PANTOPRAZOLE SODIUM 40 MG/VIAL IV SCH (14:01)
[2020-01-24] MEDS: DAPTOMYCIN 750 MG in SODIUM CHLORIDE 0.9% 50 ML IV SCH (14:58)
[2020-01-24 16:42] LABS: CHLORIDE 103 mEq/L (98-107)
[2020-01-24 16:55] LABS: BASOPHILS % 0.5 % (0.0-2.0); EOSINOPHILS % 2.2 % (0.0-5.0); HEMATOCRIT. 23.7 % (42.0-52.0); LYMPHOCYTES % 21.6 % (20.0-50.0); MEAN CORPUSCULAR HEMOGLOBIN 26.2 pg (28.0-32.0); MEAN CORPUSCULAR VOLUME 77.7 fL (80.0-94.0); MONOCYTES % 9.6 % (2.0-8.0); NEUTROPHILS % 66.1 % (40.0-76.0); PLATELET 476 x1000/uL (130-400); RED BLOOD CELL COUNT 3.04 mill/uL (4.7-6.1); RED CELL DISTRIBUTION WIDTH 16.2 % (11.6-14.6)
[2020-01-25] VITALS (12 sets, daily range): BP systolic 94–148; BP diastolic 26–82
[2020-01-25] MEDS: IPRATROPIUM/ALBUTEROL 0.5-3(2.5)MG/3ML NEB HHN SCH ×4 (02:21→20:44)
[2020-01-25] MEDS: SODIUM CHLORIDE 0.9% 1,000 ML IV SCH (05:48)
[2020-01-25] MEDS: RISPERIDONE 1MG TABLET PO SCH ×2 (08:02→21:00)
[2020-01-25] MEDS: PANTOPRAZOLE SODIUM 40 MG/VIAL IV SCH (08:02)
[2020-01-25] MEDS: ENOXAPARIN 30MG/0.3ML SYR SUBCUT SCH ×2 (08:02→23:35)
[2020-01-25] MEDS: EMTRICITABINE 200MG CAPSULE PO SCH (08:02)
[2020-01-25] MEDS: RALTEGRAVIR 400MG TABLET PO SCH ×2 (08:02→16:40)
[2020-01-25] MEDS: TENOFOVIR 300MG TABLET PO SCH (08:03)
[2020-01-25] MEDS: METOPROLOL TARTRATE 25MG TABLET PO SCH ×2 (08:04→23:00)
[2020-01-25] MEDS: LACTULOSE 20G/30ML UDC PO SCH ×2 (08:04→21:00)
[2020-01-25] MEDS: ACETAMINOPHEN 325MG TABLET PO PRN (11:17)
[2020-01-25] MEDS: DAPTOMYCIN 750 MG in SODIUM CHLORIDE 0.9% 50 ML IV SCH (13:50)
[2020-01-25 15:39] LABS: CREATINE KINASE 52 IU/L (39-308)
[2020-01-25] MEDS: HALOPERIDOL LACTATE 5MG/ML VIAL IM PRN (23:35)
[2020-01-26] VITALS (11 sets, daily range): BP systolic 98–137; BP diastolic 48–81
[2020-01-26] MEDS: IPRATROPIUM/ALBUTEROL 0.5-3(2.5)MG/3ML NEB HHN SCH ×4 (02:36→20:04)
[2020-01-26] MEDS: ENOXAPARIN 30MG/0.3ML SYR SUBCUT SCH ×2 (08:56→21:02)
[2020-01-26] MEDS: ACETAMINOPHEN 325MG TABLET PO PRN ×3 (08:56→21:02)
[2020-01-26] MEDS: FAMOTIDINE 20MG TABLET PO SCH ×2 (08:57→21:00)
[2020-01-26] MEDS: RISPERIDONE 1MG TABLET PO SCH ×2 (08:58→21:02)
[2020-01-26] MEDS: METOPROLOL TARTRATE 25MG TABLET PO SCH ×2 (08:58→21:35)
[2020-01-26] MEDS: TENOFOVIR 300MG TABLET PO SCH (08:59)
[2020-01-26] MEDS: EMTRICITABINE 200MG CAPSULE PO SCH (08:59)
[2020-01-26] MEDS: RALTEGRAVIR 400MG TABLET PO SCH ×2 (08:59→18:25)
[2020-01-26] MEDS: LACTULOSE 20G/30ML UDC PO SCH ×2 (09:00→21:00)
[2020-01-26] MEDS: DAPTOMYCIN 750 MG in SODIUM CHLORIDE 0.9% 50 ML IV SCH (14:47)
[2020-01-27] VITALS (12 sets, daily range): BP systolic 96–145; BP diastolic 60–80
[2020-01-27] MEDS: IPRATROPIUM/ALBUTEROL 0.5-3(2.5)MG/3ML NEB HHN SCH ×3 (02:01→15:06)
[2020-01-27] MEDS: ACETAMINOPHEN 325MG TABLET PO PRN (04:40)
[2020-01-27] MEDS: RALTEGRAVIR 400MG TABLET PO SCH ×2 (08:43→17:53)
[2020-01-27] MEDS: TENOFOVIR 300MG TABLET PO SCH (08:43)
[2020-01-27] MEDS: EMTRICITABINE 200MG CAPSULE PO SCH (08:43)
[2020-01-27] MEDS: HYDROMORPHONE HCL/PF 2MG/ML CPJ IV PRN (08:44)
[2020-01-27] MEDS: METOPROLOL TARTRATE 25MG TABLET PO SCH ×2 (08:45→21:06)
[2020-01-27] MEDS: RISPERIDONE 1MG TABLET PO SCH ×2 (08:45→21:06)
[2020-01-27] MEDS: FAMOTIDINE 20MG TABLET PO SCH ×2 (08:45→21:03)
[2020-01-27] MEDS: ENOXAPARIN 30MG/0.3ML SYR SUBCUT SCH ×2 (08:46→21:03)
[2020-01-27] MEDS: LACTULOSE 20G/30ML UDC PO SCH ×2 (08:46→21:00)
[2020-01-27] MEDS: HYDROCODONE/ACETAMINOPHEN 5/325MG TABLET PO PRN (15:18)
[2020-01-27] MEDS: DAPTOMYCIN 750 MG in SODIUM CHLORIDE 0.9% 50 ML IV SCH (15:18)
[2020-01-28] VITALS (11 sets, daily range): BP systolic 97–144; BP diastolic 41–77
[2020-01-28] MEDS: IPRATROPIUM/ALBUTEROL 0.5-3(2.5)MG/3ML NEB HHN SCH ×4 (01:14→19:48)
[2020-01-28] MEDS: HYDROCODONE/ACETAMINOPHEN 5/325MG TABLET PO PRN ×3 (02:50→19:50)
[2020-01-28] MEDS: FAMOTIDINE 20MG TABLET PO SCH ×2 (08:41→20:49)
[2020-01-28] MEDS: TENOFOVIR 300MG TABLET PO SCH (08:41)
[2020-01-28] MEDS: RALTEGRAVIR 400MG TABLET PO SCH ×2 (08:41→17:05)
[2020-01-28] MEDS: RISPERIDONE 1MG TABLET PO SCH ×2 (08:41→20:49)
[2020-01-28] MEDS: EMTRICITABINE 200MG CAPSULE PO SCH (08:41)
[2020-01-28] MEDS: ENOXAPARIN 30MG/0.3ML SYR SUBCUT SCH ×3 (08:42→20:58)
[2020-01-28] MEDS: LACTULOSE 20G/30ML UDC PO SCH ×2 (08:42→21:00)
[2020-01-28] MEDS: METOPROLOL TARTRATE 25MG TABLET PO SCH ×2 (08:42→20:51)
[2020-01-28] MEDS: ACETAMINOPHEN 325MG TABLET PO PRN (11:39)
[2020-01-28] MEDS ORDERED: LORAZEPAM 2MG/ML CPJ IV SCH (12:15)
[2020-01-28] MEDS: HYDROMORPHONE HCL/PF 2MG/ML CPJ IV PRN ×2 (12:17→22:21)
[2020-01-28] MEDS: DAPTOMYCIN 750 MG in SODIUM CHLORIDE 0.9% 50 ML IV SCH (13:41)
[2020-01-29] VITALS (12 sets, daily range): BP systolic 95–148; BP diastolic 48–86
[2020-01-29] MEDS: IPRATROPIUM/ALBUTEROL 0.5-3(2.5)MG/3ML NEB HHN SCH ×4 (01:32→20:45)
[2020-01-29] MEDS: HYDROCODONE/ACETAMINOPHEN 5/325MG TABLET PO PRN ×2 (03:15→09:22)
[2020-01-29] MEDS: FAMOTIDINE 20MG TABLET PO SCH ×2 (08:00→22:29)
[2020-01-29] MEDS: RALTEGRAVIR 400MG TABLET PO SCH ×2 (08:00→16:09)
[2020-01-29] MEDS: EMTRICITABINE 200MG CAPSULE PO SCH (08:00)
[2020-01-29] MEDS: TENOFOVIR 300MG TABLET PO SCH (08:00)
[2020-01-29] MEDS: RISPERIDONE 1MG TABLET PO SCH ×2 (08:00→22:29)
[2020-01-29] MEDS: HYDROMORPHONE HCL/PF 2MG/ML CPJ IV PRN ×2 (08:01→16:09)
[2020-01-29] MEDS: ENOXAPARIN 30MG/0.3ML SYR SUBCUT SCH ×3 (08:02→22:39)
[2020-01-29] MEDS: METOPROLOL TARTRATE 25MG TABLET PO SCH ×2 (08:02→22:30)
[2020-01-29] MEDS: LACTULOSE 20G/30ML UDC PO SCH (08:02)
[2020-01-29] MEDS: GABAPENTIN 100MG CAPSULE PO SCH ×2 (13:02→22:28)
[2020-01-29] MEDS: HYDROCODONE/APAP 7.5/325MG 1 TAB TABLET PO PRN ×2 (13:03→22:31)
[2020-01-29] MEDS: DAPTOMYCIN 750 MG in SODIUM CHLORIDE 0.9% 50 ML IV SCH (13:03)
[2020-01-30] VITALS (12 sets, daily range): BP systolic 91–125; BP diastolic 42–97
[2020-01-30] MEDS: IPRATROPIUM/ALBUTEROL 0.5-3(2.5)MG/3ML NEB HHN SCH ×4 (02:44→20:23)
[2020-01-30] MEDS: GABAPENTIN 100MG CAPSULE PO SCH ×3 (06:14→21:00)
[2020-01-30] MEDS: RISPERIDONE 1MG TABLET PO SCH ×2 (08:34→21:00)
[2020-01-30] MEDS: FAMOTIDINE 20MG TABLET PO SCH ×2 (08:34→21:01)
[2020-01-30] MEDS: METOPROLOL TARTRATE 25MG TABLET PO SCH ×2 (08:35→21:00)
[2020-01-30] MEDS: RALTEGRAVIR 400MG TABLET PO SCH ×2 (08:35→16:35)
[2020-01-30] MEDS: TENOFOVIR 300MG TABLET PO SCH (08:36)
[2020-01-30] MEDS: EMTRICITABINE 200MG CAPSULE PO SCH (08:36)
[2020-01-30] MEDS: HYDROCODONE/APAP 7.5/325MG 1 TAB TABLET PO PRN ×2 (10:06→21:00)
[2020-01-30] MEDS: HYDROMORPHONE HCL/PF 2MG/ML CPJ IV PRN (14:57)
[2020-01-30] MEDS: DAPTOMYCIN 750 MG in SODIUM CHLORIDE 0.9% 50 ML IV SCH (14:58)
[2020-01-30] MEDS: ENOXAPARIN 30MG/0.3ML SYR SUBCUT SCH (21:00)
[2020-01-31] VITALS (11 sets, daily range): BP systolic 87–134; BP diastolic 43–81
[2020-01-31] MEDS: IPRATROPIUM/ALBUTEROL 0.5-3(2.5)MG/3ML NEB HHN SCH ×4 (02:35→20:43)
[2020-01-31] MEDS: GABAPENTIN 100MG CAPSULE PO SCH ×3 (05:42→22:06)
[2020-01-31] MEDS: EMTRICITABINE 200MG CAPSULE PO SCH (08:52)
[2020-01-31] MEDS: RALTEGRAVIR 400MG TABLET PO SCH ×2 (08:52→17:49)
[2020-01-31] MEDS: FAMOTIDINE 20MG TABLET PO SCH ×2 (08:52→20:07)
[2020-01-31] MEDS: TENOFOVIR 300MG TABLET PO SCH (08:52)
[2020-01-31] MEDS: RISPERIDONE 1MG TABLET PO SCH ×2 (08:52→20:07)
[2020-01-31] MEDS: METOPROLOL TARTRATE 25MG TABLET PO SCH ×2 (08:53→20:07)
[2020-01-31] MEDS: ENOXAPARIN 30MG/0.3ML SYR SUBCUT SCH ×3 (08:56→20:15)
[2020-01-31] MEDS: HYDROMORPHONE HCL/PF 2MG/ML CPJ IV PRN ×2 (08:56→20:07)
[2020-01-31] MEDS: HYDROCODONE/APAP 7.5/325MG 1 TAB TABLET PO PRN ×2 (14:50→22:55)
[2020-01-31 17:05] LABS: BASOPHILS % 0.5 % (0.0-2.0); EOSINOPHILS % 5.2 % (0.0-5.0); HEMATOCRIT. 25.6 % (42.0-52.0); HEMOGLOBIN. 8.6 g/dL (14.0-18.0); LYMPHOCYTES % 30.6 % (20.0-50.0); MEAN CORPUSCULAR HEMOGLOBIN 25.9 pg (28.0-32.0); MEAN CORPUSCULAR VOLUME 76.8 fL (80.0-94.0); MEAN PLATELET VOLUME 7.3 fl (7.4-10.4); MONOCYTES % 10.4 % (2.0-8.0); NEUTROPHILS % 53.3 % (40.0-76.0); PLATELET 470 x1000/uL (130-400); RED BLOOD CELL COUNT 3.34 mill/uL (4.7-6.1); RED CELL DISTRIBUTION WIDTH 16.5 % (11.6-14.6)
[2020-01-31 17:06] LABS: CHLORIDE 101 mEq/L (98-107)
[2020-01-31] MEDS: DAPTOMYCIN 750 MG in SODIUM CHLORIDE 0.9% 50 ML IV SCH (17:52)
[2020-02-01] VITALS (12 sets, daily range): BP systolic 106–165; BP diastolic 56–92
[2020-02-01] MEDS: IPRATROPIUM/ALBUTEROL 0.5-3(2.5)MG/3ML NEB HHN SCH ×4 (01:52→21:20)
[2020-02-01] MEDS: GABAPENTIN 100MG CAPSULE PO SCH ×3 (06:45→22:04)
[2020-02-01] MEDS: ENOXAPARIN 30MG/0.3ML SYR SUBCUT SCH ×2 (09:00→21:00)
[2020-02-01] MEDS: EMTRICITABINE 200MG CAPSULE PO SCH (09:03)
[2020-02-01] MEDS: RALTEGRAVIR 400MG TABLET PO SCH ×2 (09:05→17:03)
[2020-02-01] MEDS: FAMOTIDINE 20MG TABLET PO SCH ×2 (09:06→22:04)
[2020-02-01] MEDS: METOPROLOL TARTRATE 25MG TABLET PO SCH ×2 (09:06→22:05)
[2020-02-01] MEDS: TENOFOVIR 300MG TABLET PO SCH (09:06)
[2020-02-01 09:36] LABS: BASOPHILS % 0.4 % (0.0-2.0); EOSINOPHILS % 4.6 % (0.0-5.0); HEMATOCRIT. 25.8 % (42.0-52.0); HEMOGLOBIN. 8.6 g/dL (14.0-18.0); LYMPHOCYTES % 39.4 % (20.0-50.0); MEAN CORPUSCULAR HEMOGLOBIN 25.7 pg (28.0-32.0); MEAN CORPUSCULAR VOLUME 77.2 fL (80.0-94.0); MEAN PLATELET VOLUME 6.7 fl (7.4-10.4); MONOCYTES % 8.9 % (2.0-8.0); NEUTROPHILS % 46.7 % (40.0-76.0); PLATELET 454 x1000/uL (130-400); RED BLOOD CELL COUNT 3.34 mill/uL (4.7-6.1); RED CELL DISTRIBUTION WIDTH 16.3 % (11.6-14.6)
[2020-02-01 09:41] LABS: CHLORIDE 100 mEq/L (98-107)
[2020-02-01] MEDS: HYDROMORPHONE HCL/PF 2MG/ML CPJ IV PRN ×2 (11:27→19:53)
[2020-02-01 12:09] LABS: CREATINE KINASE 48 IU/L (39-308)
[2020-02-01] MEDS: DAPTOMYCIN 750 MG in SODIUM CHLORIDE 0.9% 50 ML IV SCH (13:54)
[2020-02-02] VITALS (14 sets, daily range): BP systolic 101–129; BP diastolic 55–76
[2020-02-02] MEDS: IPRATROPIUM/ALBUTEROL 0.5-3(2.5)MG/3ML NEB HHN SCH ×3 (02:48→21:11)
[2020-02-02] MEDS: GABAPENTIN 100MG CAPSULE PO SCH ×3 (05:40→22:13)
[2020-02-02] MEDS: EMTRICITABINE 200MG CAPSULE PO SCH (08:29)
[2020-02-02] MEDS: TENOFOVIR 300MG TABLET PO SCH (08:29)
[2020-02-02] MEDS: RALTEGRAVIR 400MG TABLET PO SCH ×2 (08:29→16:01)
[2020-02-02] MEDS: FAMOTIDINE 20MG TABLET PO SCH ×2 (08:29→22:13)
[2020-02-02] MEDS: METOPROLOL TARTRATE 25MG TABLET PO SCH ×2 (08:30→22:13)
[2020-02-02] MEDS: ENOXAPARIN 30MG/0.3ML SYR SUBCUT SCH ×2 (08:30→21:00)
[2020-02-02] MEDS: HYDROMORPHONE HCL/PF 2MG/ML CPJ IV PRN (09:12)
[2020-02-02 11:07] LABS: BASOPHILS % 0.5 % (0.0-2.0); EOSINOPHILS % 5.8 % (0.0-5.0); HEMATOCRIT. 25.9 % (42.0-52.0); HEMOGLOBIN. 8.6 g/dL (14.0-18.0); LYMPHOCYTES % 34.4 % (20.0-50.0); MEAN CORPUSCULAR HEMOGLOBIN 25.4 pg (28.0-32.0); MEAN CORPUSCULAR VOLUME 76.8 fL (80.0-94.0); MEAN PLATELET VOLUME 6.9 fl (7.4-10.4); MONOCYTES % 8.8 % (2.0-8.0); NEUTROPHILS % 50.5 % (40.0-76.0); PLATELET 485 x1000/uL (130-400); RED BLOOD CELL COUNT 3.37 mill/uL (4.7-6.1); RED CELL DISTRIBUTION WIDTH 16.7 % (11.6-14.6)
[2020-02-02 11:13] LABS: CHLORIDE 100 mEq/L (98-107)
[2020-02-02] MEDS: HYDROCODONE/APAP 7.5/325MG 1 TAB TABLET PO PRN (14:17)
[2020-02-02] MEDS: DAPTOMYCIN 750 MG in SODIUM CHLORIDE 0.9% 50 ML IV SCH (15:40)
[2020-02-02] MEDS: DOCUSATE SODIUM 100MG CAPSULE PO SCH (16:21)
[2020-02-02] MEDS: ONDANSETRON 4MG ODT PO PRN (16:21)
[2020-02-03] VITALS (12 sets, daily range): BP systolic 67–129; BP diastolic 38–98
[2020-02-03] MEDS: IPRATROPIUM/ALBUTEROL 0.5-3(2.5)MG/3ML NEB HHN SCH ×4 (02:23→21:17)
[2020-02-03] MEDS: GABAPENTIN 100MG CAPSULE PO SCH ×3 (06:01→22:03)
[2020-02-03] MEDS: TENOFOVIR 300MG TABLET PO SCH (08:10)
[2020-02-03] MEDS: EMTRICITABINE 200MG CAPSULE PO SCH (08:10)
[2020-02-03] MEDS: FAMOTIDINE 20MG TABLET PO SCH ×2 (08:10→22:03)
[2020-02-03] MEDS: HYDROMORPHONE HCL/PF 2MG/ML CPJ IV PRN (08:10)
[2020-02-03] MEDS: RALTEGRAVIR 400MG TABLET PO SCH ×2 (08:10→16:41)
[2020-02-03] MEDS: DOCUSATE SODIUM 100MG CAPSULE PO SCH ×2 (08:10→16:42)
[2020-02-03] MEDS: METOPROLOL TARTRATE 25MG TABLET PO SCH ×2 (08:11→21:45)
[2020-02-03] MEDS: ENOXAPARIN 30MG/0.3ML SYR SUBCUT SCH ×3 (08:12→22:03)
[2020-02-03 10:03] LABS: BASOPHILS % 0.7 % (0.0-2.0); EOSINOPHILS % 4.1 % (0.0-5.0); HEMATOCRIT. 26.9 % (42.0-52.0); HEMOGLOBIN. 8.7 g/dL (14.0-18.0); LYMPHOCYTES % 33.3 % (20.0-50.0); MEAN CORPUSCULAR HEMOGLOBIN 25.3 pg (28.0-32.0); MEAN PLATELET VOLUME 6.8 fl (7.4-10.4); MONOCYTES % 8.5 % (2.0-8.0); NEUTROPHILS % 53.4 % (40.0-76.0); PLATELET 438 x1000/uL (130-400); RED BLOOD CELL COUNT 3.45 mill/uL (4.7-6.1); RED CELL DISTRIBUTION WIDTH 16.8 % (11.6-14.6)
[2020-02-03 10:06] LABS: CHLORIDE 101 mEq/L (98-107)
[2020-02-03] MEDS: DAPTOMYCIN 750 MG in SODIUM CHLORIDE 0.9% 50 ML IV SCH (13:32)
[2020-02-03] MEDS: HYDROCODONE/APAP 7.5/325MG 1 TAB TABLET PO PRN (14:52)
[2020-02-04] VITALS (11 sets, daily range): BP systolic 81–179; BP diastolic 34–108
[2020-02-04] MEDS: ACETAMINOPHEN 325MG TABLET PO PRN (01:15)
[2020-02-04] MEDS: IPRATROPIUM/ALBUTEROL 0.5-3(2.5)MG/3ML NEB HHN SCH ×5 (01:19→20:20)
[2020-02-04] MEDS: HYDROCODONE/APAP 7.5/325MG 1 TAB TABLET PO PRN ×2 (04:10→11:58)
[2020-02-04] MEDS: GABAPENTIN 100MG CAPSULE PO SCH ×3 (05:15→21:05)
[2020-02-04] MEDS: RALTEGRAVIR 400MG TABLET PO SCH ×2 (08:45→17:41)
[2020-02-04] MEDS: ENOXAPARIN 30MG/0.3ML SYR SUBCUT SCH ×2 (08:45→21:17)
[2020-02-04] MEDS: EMTRICITABINE 200MG CAPSULE PO SCH (08:45)
[2020-02-04] MEDS: FAMOTIDINE 20MG TABLET PO SCH ×2 (08:46→21:05)
[2020-02-04] MEDS: DOCUSATE SODIUM 100MG CAPSULE PO SCH ×2 (08:46→17:41)
[2020-02-04] MEDS: METOPROLOL TARTRATE 25MG TABLET PO SCH (08:46)
[2020-02-04] MEDS: TENOFOVIR 300MG TABLET PO SCH (08:46)
[2020-02-04] MEDS: DAPTOMYCIN 750 MG in SODIUM CHLORIDE 0.9% 50 ML IV SCH (14:08)
[2020-02-04] MEDS: HYDROMORPHONE HCL/PF 2MG/ML CPJ IV PRN (14:08)
[2020-02-04 15:40] LABS: BASOPHILS % 0.5 % (0.0-2.0); EOSINOPHILS % 5.2 % (0.0-5.0); HEMATOCRIT. 26.2 % (42.0-52.0); HEMOGLOBIN. 8.7 g/dL (14.0-18.0); LYMPHOCYTES % 43.2 % (20.0-50.0); MEAN CORPUSCULAR HEMOGLOBIN 25.8 pg (28.0-32.0); MEAN CORPUSCULAR VOLUME 77.4 fL (80.0-94.0); MEAN PLATELET VOLUME 7.1 fl (7.4-10.4); MONOCYTES % 9.3 % (2.0-8.0); NEUTROPHILS % 41.8 % (40.0-76.0); PLATELET 453 x1000/uL (130-400); RED BLOOD CELL COUNT 3.38 mill/uL (4.7-6.1); RED CELL DISTRIBUTION WIDTH 16.5 % (11.6-14.6)
[2020-02-04 15:42] LABS: CHLORIDE 105 mEq/L (98-107)
[2020-02-05] VITALS: BP 119/68
[2020-02-05] MEDS: IPRATROPIUM/ALBUTEROL 0.5-3(2.5)MG/3ML NEB HHN SCH ×2 (01:05→10:03)
[2020-02-05 04:00] VITALS: BP 109/73
[2020-02-05] MEDS: GABAPENTIN 100MG CAPSULE PO SCH ×2 (06:02→14:43)
[2020-02-05 08:00] VITALS: BP 102/60
[2020-02-05] MEDS: ENOXAPARIN 30MG/0.3ML SYR SUBCUT SCH (08:25)
[2020-02-05] MEDS: TENOFOVIR 300MG TABLET PO SCH (08:25)
[2020-02-05] MEDS: FAMOTIDINE 20MG TABLET PO SCH (08:26)
[2020-02-05] MEDS: RALTEGRAVIR 400MG TABLET PO SCH ×2 (08:26→16:46)
[2020-02-05] MEDS: DOCUSATE SODIUM 100MG CAPSULE PO SCH ×2 (08:26→16:46)
[2020-02-05] MEDS: EMTRICITABINE 200MG CAPSULE PO SCH (08:26)
[2020-02-05] MEDS: ONDANSETRON 4MG ODT PO PRN (09:41)
[2020-02-05] MEDS: HYDROMORPHONE HCL/PF 2MG/ML CPJ IV PRN (09:45)
[2020-02-05 12:00] VITALS: BP 112/55
[2020-02-05] MEDS: DAPTOMYCIN 750 MG in SODIUM CHLORIDE 0.9% 50 ML IV SCH (14:43)
[2020-02-05] MEDS ORDERED: HYDR-4001 MT (15:08)
[2020-02-05 16:00] VITALS: BP 131/78
[2020-02-05 17:08] VITALS: BP 97/64
[2020-02-06] MEDS ORDERED: BICT1TAB PO (10:18)
== END 2020-02-05 19:17 | disposition home health service (06) | DRG 4 ==
LOC: ER 10:49 → EDBEDREQTM 12:18 → EDBEDREQ 12:18 → ENRESERV 17:25 → 7WST 18:06 → MICUSO 12-18 11:05 → MICUNO 12-19 21:40 → CVICU 12-23 05:30 → 5EST 01-03 00:12
PROVIDERS: ADMIT Internal Medicine; ATTEND Internal Medicine
PROC: 5A1955Z Respiratory Ventilation, Greater than 96 Consecutive Hours (ICD-10-PCS; principal; 2019-12-18)
PROC: 0BH17EZ Insertion of Endotracheal Airway into Trachea, Via Natural or Artificial Opening (ICD-10-PCS; 2019-12-18)
PROC: B54MZZA Ultrasonography of Right Upper Extremity Veins, Guidance (ICD-10-PCS; 2019-12-21)
PROC: 05HY33Z Insertion of Infusion Device into Upper Vein, Percutaneous Approach (ICD-10-PCS; 2019-12-21)
PROC: 0KBP0ZZ Excision of Left Hip Muscle, Open Approach (ICD-10-PCS; 2019-12-25)
PROC: 0KBN0ZZ Excision of Right Hip Muscle, Open Approach (ICD-10-PCS; 2019-12-25)
PROC: 0LBK0ZZ Excision of Left Hip Tendon, Open Approach (ICD-10-PCS; 2019-12-28)
PROC: 0LBJ0ZZ Excision of Right Hip Tendon, Open Approach (ICD-10-PCS; 2019-12-28)
PROC: 0DH63UZ Insertion of Feeding Device into Stomach, Percutaneous Approach (ICD-10-PCS; 2020-01-02)
PROC: 0B110F4 Bypass Trachea to Cutaneous with Tracheostomy Device, Open Approach (ICD-10-PCS; 2020-01-02)
PROC: 0GBJ0ZZ Excision of Thyroid Gland Isthmus, Open Approach (ICD-10-PCS; 2020-01-02)
DX: A41.02 Sepsis due to Methicillin resistant Staphylococcus aureus (principal); R65.21 Severe sepsis with septic shock; G93.41 Metabolic encephalopathy; L89.154 Pressure ulcer of sacral region, stage 4; J96.01 Acute respiratory failure with hypoxia; D68.59 Other primary thrombophilia; E66.01 Morbid (severe) obesity due to excess calories; D50.9 Iron deficiency anemia, unspecified; L03.317 Cellulitis of buttock; N39.0 Urinary tract infection, site not specified; E87.2 Acidosis; D72.821 Monocytosis (symptomatic); E87.0 Hyperosmolality and hypernatremia; D72.810 Lymphocytopenia; J91.8 Pleural effusion in other conditions classified elsewhere; E11.52 Type 2 diabetes mellitus with diabetic peripheral angiopathy with gangrene; E87.1 Hypo-osmolality and hyponatremia; G82.50 Quadriplegia, unspecified; I11.9 Hypertensive heart disease without heart failure; L98.419 Non-pressure chronic ulcer of buttock with unspecified severity; M75.02 Adhesive capsulitis of left shoulder; N17.0 Acute kidney failure with tubular necrosis; R13.10 Dysphagia, unspecified; R26.9 Unspecified abnormalities of gait and mobility; R16.0 Hepatomegaly, not elsewhere classified; R74.0 Nonspecific elevation of levels of transaminase and lactic acid dehydrogenase [LDH]; J12.9 Viral pneumonia, unspecified; B20 Human immunodeficiency virus [HIV] disease; I76 Septic arterial embolism; E43 Unspecified severe protein-calorie malnutrition; Z78.1 Physical restraint status; Z79.84 Long term (current) use of oral hypoglycemic drugs; Z82.49 Family history of ischemic heart disease and other diseases of the circulatory system; Z03.818 Encounter for observation for suspected exposure to other biological agents ruled out; Z68.35 Body mass index [BMI] 35.0-35.9, adult
CPT/HCPCS: 36415; 36600; 71045; 71275; 72192; 73030; 73200; 74018; 74177; 76937; 80048; 80053; 80061; 80202; 80305; 80320; 81003; 82010; 82040; 82043; 82247; 82375; 82550; 82570; 82728; 82805; 82962; 83036; 83540; 83550; 83605; 83615; 83735; 83880; 83935; 84075; 84100; 84134; 84145; 84155; 84450; 84460; 84484; 85025; 85027; 85379; 85384; 86140; 86359; 86360; 86701; 86702; 86705; 86709; 86803; 86850; 86900; 86920; 87070; 87075; 87077; 87186; 87340; 87389; 87536; 87804; 88304; 92610; 93005; 93306; 93970; 94003; 94640; 97110; 97116; 97163; 97166; 97530; 97535; 99291; C1725; C9113; J0690; J0878; J1170; J1630; J1650; J1815; J2060; J2250; J2270; J2405; J2543; J2704; J3010; J3370; J3490; J7030; J7050; J7060; J7070; J7608; P9016; Q0162; Q9967; G0480; U0003-CS